=== PATIENT | female | born 1935 | race Caucasian/White ===

== ENCOUNTER 2018-03-21 16:59 | Inpatient (IN) | payer MEDICARE, SELFPAY ==
[2018-03-17 09:56] VITALS: BMI 42.2
[2018-03-20] VITALS (14 sets, daily range): BP systolic 102–134; BP diastolic 52–91; PULSE 63–75; RESP 10–18; TEMP 36.2–36.8; O2SAT 92–97; BMI 42.2
--- NOTE | 2018-03-20 | DI.RAD.S_ITS ---
PROCEDURE: XR LUMBAR SPINE 2-3V INDICATIONS: MICRO DISC ECOMY TECHNIQUE: 3 intraoperative fluoroscopic views of the lumbar spine were acquired. COMPARISON: None. FINDINGS: Bones: Intraoperative fluoroscopic images of lumbar spine shows surgical instrument placed posteriorly at what appears to be L2-3 and L3-4 levels. Soft tissues: Overlying bowel gas pattern is normal. No suspicious soft tissue calcifications. IMPRESSION: Fluoroscopy guidance was provided intraoperatively for lumbar spine microdiscectomy. Dictated by: Vicente Pennington M.D. on 03/20/2018 at 10:56 Approved by: Vicente Pennington M.D. on 03/20/2018 at 10:59
[2018-03-20] MEDS: LACTATED RINGERS 1,000 ML 42 ML IV (08:39)
--- NOTE | 2018-03-20 09:10 | PM.PREOP ---
Pre-operative Note Interval Note Pre-op Check: Yes History & Physical Reviewed by Physician, Yes Exam Performed and Yes History & Physical exam performed today by Physician Changes: No
[2018-03-20] MEDS: CEFAZOLIN 2 GM/100 ML FROZ.PIGGY IV ×2 (09:35→16:35)
--- NOTE | 2018-03-20 10:01 | SUR.OPER ---
Prone on spine table, head in foam head support, padded chest and pelvic supports, gel pad at knees, lower legs supported by pillows; nipples, genitalia and toes free of pressure, arms secured on foam padded arm boards at <90 degrees abduction. Tape over blanket at thigh secured to table.
[2018-03-20] MEDS: BUPIVACAINE 0.25% W/ EPI VIAL 50 ML INJ (10:13)
[2018-03-20] MEDS: methylPREDNISolone acet DEPO 40 MG/ML VIAL INJ (10:14)
--- NOTE | 2018-03-20 11:05 | P.OP_ITS ---
Operative Date/Time/Diagnoses Date of procedure: 03/20/18 Time of procedure: 10:01 Pre-op diagnosis: 1. L2-3, L3-4 spinal stenosis 2. Neurogenic claudication Post-op diagnosis: same Procedure & Clinicians Procedure: 1. L2-3 laminectomy 2. L3-4 laminectomy 3. Utilization of microsurgical technique and operating microscope Same procedure as scheduled: Yes Indications: Patient has been having chronic back pain and worsening lumbar radiculopathy. Patient failed multiple conservative management with worsening pain weakness and numbness in her lower extremity. Patient has been having difficulty performing activity of daily living. After discussing risks benefits of treatment options, patient elected proceed with surgery. Surgeon: Margaret Lowe Geoscience Technician: Linda Spangler Click Yes if Unassisted: No Anesthesia Type: General Operative Notes Closure Type: primary Specimen(s): none sent Estimated Blood Loss (mL): 10 Blood products transfused: none Procedure in detail: Patient was seen in the preoperative area. Risks and benefits of the surgery was discussed with the patient. Informed consent was obtained from the patient and placed in the chart. Surgical site was marked. Patient was taken to the operative room. General anesthesia was administered. Prophylactic antibiotic was given to the patient less than 30 min before the incision was made. Patient was placed into a prone position on the Malik table. Patient's back was then prepped and draped in the sterile fashion. Time- out was performed at this time. Using AP and lateral C-arm imaging the interval between L2-3 L3-4 was identified and marked on patient's back. A 1 inch incision 1 in from midline was made on the left side. The fascia was incised in line with skin incision. Globus MARS retractors was placed inside the incision and docked onto the L2 and L3 lamina. Using microsurgical technique and operating microscope, L2 and L3 laminectomy was performed using a Kerrison rongeur to decompress the L2-3 and L3-4 levels. Total two level laminectomies were performed. Ligamentum flavum was resected at the site of the laminectomy. Either side of the dura was exposed. Bilateral partial facetcomies was performed to further decompress the lateral recess. After the laminectomy was completed, the area medial lateral superior and inferior to the area of the laminectomy was inspected and explored using a micro curette. No other impinging structure was identified. The wound was then irrigated with sterile normal saline. 40 mg Depo-Medrol was placed into the epidural space. The deep fascia was closed with 1-0 Vicryl. The subcutaneous tissue was closed with 2-0 Vicryl. The skin was closed with 4- 0 Monocryl. Patient tolerated the procedure well. There were no complications. Patient was transferred recovery room in stable condition. Complications: none Condition: stable Disposition: same day surgery Plan for aftercare: D/c home
[2018-03-20] MEDS: OXYCODONE/ACETAMINOPHEN 5/325 TABLET 1 TAB PO (11:49)
--- NOTE | 2018-03-20 12:21 | SUR.PHASEII ---
Addendum entered by Akosua Hernandez R.N. 03/20/18 12:24: Original Note: pt dressed and ready to go, sitting on stretcher and stated my feet feel numb, they feel different than before. attempts to bear weight unsuccessful. pt placed back on stretcher and dr kaufman notified, pt to be reevaluated in
--- NOTE | 2018-03-20 12:25 | SUR.PHASEI ---
stable pacu to opd.
--- NOTE | 2018-03-20 13:56 | SUR.PHASEII ---
1300 Pt sitting up in bed, awake. Reported feet still numb, moving ble independently. Attempted to stand slowly, sba. Pt did not put full weight on extremities and sat back down, complaining of weakness. Pt repositioned in stretcher, call light within reach. Pt c/o sore throat, ice chips provided. 1400 Pt declined to stand at this time, reported feet were still numb. Pt reported sore throat has improved.
--- NOTE | 2018-03-20 15:20 | SUR.PHASEII ---
iv placed in rt anterior hand. #24 angio flushed easily with 5ml NS, secured with tegaderm and tape pt. tolerated well.
--- NOTE | 2018-03-20 16:05 | SUR.PHASEII ---
Dr Lowe notified pt unable to stand independently and also her back guaze drsg saturated with blood but tegaderm intact. MD to put in admit orders and vvo to leave drsg intact. Report called to STEFANIE Valdovinos. IV saline locked placed on RT hand but Franchesca Prieto
[2018-03-20] MEDS: SODIUM CHLORIDE 0.9% 1,000 ML 100 ML IV (16:35)
--- NOTE | 2018-03-20 18:56 | PC.NURSE ---
PATIENT ASSISTED TO BSC WITH WALKER,LEGS VERY WEAK, UNSURE OF HER ABILITY TO TRANSFER.
[2018-03-20] MEDS: DOCUSATE 100 MG CAPSULE PO (22:05)
[2018-03-20] MEDS: SENNOSIDES 8.6 MG TABLET 17.2 MG PO (22:05)
[2018-03-20] MEDS: GABAPENTIN 300 MG CAPSULE PO (22:05)
[2018-03-21] MEDS: OXYCODONE IR 5 MG TABLET PO ×2 (01:27→13:58)
[2018-03-21] MEDS: CEFAZOLIN 2 GM/100 ML FROZ.PIGGY IV (01:27)
[2018-03-21] MEDS: SODIUM CHLORIDE 0.9% 1,000 ML 100 ML IV (01:28)
[2018-03-21 05:32] LABS: Hematocrit 35.7 % (36-46); Hemoglobin 12.3 g/dL (12.0-16.0)
[2018-03-21 06:00] VITALS: BP 120/65; PULSE 66; RESP 16; TEMP 36.6; O2SAT 95
--- NOTE | 2018-03-21 07:36 | PM.PNPO.1 ---
Subjective Date Patient Seen: 03/21/18 Time Patient Seen: 07:36 Interval history: Patient is PD 1. Status post L2-L3, L3-[address] Lowe. States that she feels weak. She is taking 1 pain pill but she says it is taking a long time to working visually not covering her pain right now. Numbness down both her legs has gotten better after surgery. Plan is for her to be eventually discharged home when stable. Exam Vital Signs (past 8 hours): - 03/21/18 06:00 Temperature 97.8 F Pulse Rate 66 Respiratory Rate 16 Blood Pressure 120/65 Pulse Oximetry 95 Oxygen Delivery Method Room Air Narrative Exam Narrative: Patient in bed. Alert and orient x3. Back dressing soaked with blood. No active bleeding. Bilateral calves soft and nontender. 5/5 BLE. Numbness in bilateral toes. Objective Labs Result Diagrams: 03/21/18 05:07 Labs: Laboratory Results - last 24 hr 03/21/18 05:07 Hgb 12.3 Hct 35.7 L Assessment & Plan Post-op Postoperative Procedures Operation Date: 03/20/18 09:15 Actual Procedures Side Surgeon p Laminectomy L2-3,L3-4 Margaret Lowe MD Postop day 1. Vac dressing was changed to 4x4s and Cover site dressing. Patient ambulate with physical therapy. Will order oxycodone 10 mg q.3h as needed pain. Possible discharge home in the next day or 2. Quality VTE Deep Vein Thrombosis/Pulmonary Embolism Present on Admission: No
[2018-03-21 07:55] VITALS: BP 123/67; PULSE 59; RESP 12; TEMP 36.8; O2SAT 93
[2018-03-21] MEDS: OXYCODONE IR 10 MG TABLET PO (09:04)
[2018-03-21] MEDS: GABAPENTIN 300 MG CAPSULE PO ×2 (09:05→20:14)
[2018-03-21] MEDS: hydroCHLOROthiazide 12.5 MG CAPSULE PO (09:05)
[2018-03-21] MEDS: LOSARTAN 50 MG TABLET PO (09:05)
[2018-03-21] MEDS: DOCUSATE 100 MG CAPSULE PO ×2 (09:07→20:14)
--- NOTE | 2018-03-21 10:29 | PC.NURSE ---
Addendum entered by Marichuy Wilson R.N. 03/21/18 14:13: MS/PAIN - after up with phys therapy, using gait belt, fww, ambul to door and then sat in chair, states pain now 5 on scale 0/10, discussed pain medications and given oxycodone 5mg with crackers. Original Note: Addendum entered by Marichuy Wilson R.N. 03/21/18 12:59: PAIN - pt seated chair, little tearful as her family was in to enc pt go to snf following discharge, states pain managed with earlier oxycodone and declines addl meds at this time, will ask if needed, enc pt to continue with phys therapy for strengthening and then will be able to make decisions tomorrow. Original Note: AM NOTE - pt states pain r hand at iv site, infiltrated and ivf stopped and saline lock removed, Charlee in this am and dsg back saturated and telfa loose, removed, steristrips w/old serosang, no active drainage, per instructions from Charlee, placed telfa over, 4x4, w/coversite over, pain 5 on scale 0/10, does have hx numbness le and feet prior to surg, continues with some numbness toes, later up with phys therapy and has lle weakness, stood and tsf to chair, given oxycodone 10mg po after breakfast for mobilization.
[2018-03-21 11:45] VITALS: BP 119/57; PULSE 56; RESP 12; TEMP 36.4; O2SAT 94
--- NOTE | 2018-03-21 12:31 | PT.IIE ---
Current Diagnoses Other spondylosis with radiculopathy, lumbar region (03/20/18) Spinal stenosis, lumbar region with neurogenic claudication (03/20/18) Surgery Performed Operation Date: 03/20/18 09:15 Actual Procedures p Laminectomy L2-3,L3-4 - Margaret Lowe MD Medical History (Last Updated 03/17/18 @ 10:08 by Mónica Munoz RN) Essential hypertension with goal blood pressure less than 140/90 (Acute) Low back pain (Acute) SHIRLENE (obstructive sleep apnea) (Acute) Other spondylosis with radiculopathy, lumbar region (Acute) Sciatica (Acute) Spinal stenosis, lumbar region with neurogenic claudication (Acute) Physical Therapy Inpatient Evaluation/Re-Eval Medical Review Prior Functional Status Medical History Reviewed Yes Diet/Fluid Consistency Regular Communication no known deficits Mobility and Gait normally mod ind with SPC for community mobility, ind without device at home. Activities of Daily Living and IADL's ind, normally wears slip on shoes at home so she doesn't have to bend over Prior Functional Level (Other details) drives Social History Household Members none Living Arrangements House Number of Floors (Floors) One Floor Number of Stairs To Enter/Railing? ramped entry Home Environment High Toilet Walk in Shower Built-In Shower Seat Ramp Home Equipment Front Wheel Walker Four Wheel Walker Straight Cane Raised Toilet Seat Without Armrests Hand Held Shower Grab Bars In Shower Additional Social History Comment pt reports that she will have initial 17/01 assist, son lives next door Physical Therapy Current Condition Current Condition Evaluation Date 03/21/18 Treatment Diagnosis L2-L3, L3-4 laminectomies, impaired mobility, focal LLE weakness Onset Date 03/20/18 Precautions Lumbar Precautions Log Roll No Twisting Limit Bending Lifting Restriction of 10 lbs Gait Belt above Incisional Area Subjective Physical Therapy Visit Type Type Initial Evaluation Visit Start Time 08:30 Visit Stop Time 10:00 Total Visit Minutes 50 Notes split session; [id number], 0930 -1000. Physical Therapy Visit Comments Patient Comments Pt reports being motivated to get moving, really shocked she 's having so much weakness. Patient Goals go home, get LLE stronger/ working Therapy Pain Assessment Pain When Pain Assessed At Rest Pain Present Pain Present Denied Pain PT-Bed Mobility Assessment Rolling Type of Rolling Log Rolling Roll to Right Level of Assist Standby Assistance Supine to Sit Supine to Sit Standby Assistance Scooting Scooting to Edge of Bed Standby Assistance PT-Transfer Assessment Sit to and From Stand Sit to and from Stand Minimal Assistance 1 Person Assistance Use of Upper Extremities Equipment Transfer Assistive Device Gait Belt Front Wheeled Walker Transfers Transfer Destination Chair Transfer Technique Stand Step Pivot Transfer Ability Level of Assist Contact Guard Assistance 1 Person Assistance Use of Upper Extremities Comments Mobility Comments Pt performs bed mobility with ideal technique. Pt needs min A to stand up from elevated bed using be rail and FWW, gait belt worn high on chest. L knee quite unstable even with gentle lateral weight shifting. Gait Assessment Comments Gait Comments not appropriate to assess at this time PT-Balance Assessment Sitting Balance and Reactions Static Sitting Balance Ability Normal Dynamic Sitting Balance Ability Normal Standing Balance and Reactions Static Standing Balance Ability Fair Dynamic Standing Balance Ability Poor Device Used FWW Orientation Orientation/Cognition Level of Alertness Alert Orientation Name Age Birthday Month Date Year Day of Week Place Situation Language Function Ability No Deficits Noted Safety Awareness Understands Safety Issues Memory Description No Deficits Noted Gross Range of Motion Upper Extremity ROM Assessment Within Functional Limits Lower Extremity ROM Assessment Within Functional Limits Strength Upper Extremity Strength Assessment Within Functional Limits Lower Extremity Strength Assessment Bilaterally Impaired Hip R 4/5, L 2+/5 Knee R 4/5, L 3/5 Ankle R 4/5, L 3/5 Physical Therapy Treatment Education Education Provided Precautions Weight Bearing Status Post-Op Packet Safety Other Treatments Other Treatment Performed Pt instructed in seated heel raises, LAQ, and marching. PT Summary Assessment and Plan Potential Rehabilitation Potential Good Status of Condition at Evaluation Evolving Summary Impairments Strength Balance Transfers Gait Progress Towards Goals Progressing Toward Goals Assessment Summary Pt is POD#1 for L2-L4 lami. The initial plan had been for pt to discharge directly home yesterday, however, pt's LLE was too weak to support her. Today pt's LLE is still significantly weaker than the RLE (though both demonstrate weakness). In standing pt's LLE is quite unstable, and it' s not safe for pt to attempt ambulation yet. This is expected to improve as local swelling continues to decrease , hopefully to the point that the patient is able to ambulate and return home w/ assist. However, if this doesn 't occur in the next 1-2 then another plan will need to be made. Pt expresses understanding and is in agreement with this plan. Goals Bed Mobility Goal Independent Transfer Goal Independent Front Wheeled Walker Gait Goal Independent Front Wheel Walker Gait Distance 50 Days to Meet Goals 3 Frequency of Treatment Frequency Of Treatment Twice a Day Treatment Plan Physical Therapy Treatment Plan Bed Mobility Training Transfer Training Gait Training Therapeutic Exercise Balance Retraining Post Op Education Discharge Planning Hot or Cold Pack Neuromuscular Re-ed Coordination Retraining Manual Therapy Other Recommendations and Next Treatment LLE strength, transfers, Focus attempt gait once LLE can support her weight better in standing Recommendations To Nursing Amount of Assist Needed 1 Person Assist Discharge Recommendations PT Discharge Recommendations Home with 17/01 Assist Home Health Other Discharge Recommendations pt might need SNF if LLE strength doesn't improve
--- NOTE | 2018-03-21 12:48 | CM.DANOTE ---
Discharge Planning/Care Management CM Discharge Assessment Start: 03/21/18 12:43 Freq: Status: Active Protocol: Document 03/21/18 12:43 (Rec: 03/21/18 12:48 [id number]) Discharge Planning Assessment Assigned Rubber Goods Cutter Finisher GISELA Joseph Advance Directives? No History Provided By Patient Family Member Medical Record Has Patient been admitted in last 30 No days? Prior Living Arrangements House Household Members none Type of transporation used prior to Drives own vehicle admit Independent with ADL's Yes Is patient alert and oriented? Yes Caregiver for Another No Community Services used prior to Physical Therapy admission: Comment OP PT DME Already Rented / Owned Cane Comment Used cane as needed. Patient/Family Preference Home with Home Health Comment Patient is wishing to discharge home with HH but will discuss SNF as last resort. Barriers to Discharge No Discharge Plan Home with Home Health Community Services Physical Therapy Occupational Therapy Transportation Arrangement Daughter able to assist with transportation. Additional Comment Need HH referral but patient is reviewing Medicare choice list. If patient plan is home with home health No: PCP is SHAHZAD Burns : Has signed face to face form been completed? Comment currently [facility] Medicare Choice List Provided Yes SNF/HH Preference Patient is still reviewing agencies with family. Patient [place] [facility]. Whiteboard Updated in Patient Room with Yes name and ext. # of Rubber Goods Cutter Finisher Review Status In Process Please Provide Date Initial DC 03/21/18 Assessment Was Performed Next Review Type Continued Stay Review Met with patient, adult daughter, and adult granddaughter who is employed at . Patient is independent at baseline and motivated to return home. PT eval was completed and it was recommended Home w/ HH vs Home w/ 17/01. Depending on how much patient progressed SNF may be needed. Patient is pending OT eval. During conversation daughter reported concerns about patient returning home. Patient's discharge goals are to return home with HH but did remain agreeable to a discussion on SNF if absolutely necessary. provided Medicare Choice list and requested family to provide primary and secondary options. Plan: pending patient progress. Should patient progress safely home w/ HH should be a safe discharge. F2F and HH agency selection are still needed. If patient does not progress with PT, CM team to follow up to discuss safety concerns and possible need for SNF. Patient is currently in Outpatient which would be a barrier should patient need SNF.
--- NOTE | 2018-03-21 15:25 | PT.IPTN ---
Current Diagnoses Other spondylosis with radiculopathy, lumbar region (03/20/18) Spinal stenosis, lumbar region with neurogenic claudication (03/20/18) Surgery Performed Operation Date: 03/20/18 09:15 Actual Procedures p Laminectomy L2-3,L3-4 - Margaret Lowe MD Physical Therapy Treatment Note Physical Therapy Current Condition Current Condition Evaluation Date 03/21/18 Treatment Diagnosis L2-L3, L3-4 laminectomies, impaired mobility, focal LLE weakness Onset Date 03/20/18 Precautions Lumbar Precautions Log Roll No Twisting Limit Bending Lifting Restriction of 10 lbs Gait Belt above Incisional Area Subjective Physical Therapy Visit Type Type Treatment Note Visit Start Time 13:30 Visit Stop Time 14:23 Total Visit Minutes 53 Physical Therapy Visit Comments Patient Comments Pt reports her daughter wants her to consider going to rehab , this plan makes her anxious as she feels that if she goes to a shelter she won't ever leave. Patient Goals go home, even with help Therapy Pain Assessment Pain When Pain Assessed At Rest Pain Present Pain Present Denied Pain PT-Bed Mobility Assessment Rolling Type of Rolling Log Rolling Level of Assist Standby Assistance Sit to Supine Sit to Supine Moderate Assistance PT-Transfer Assessment Sit to and From Stand Sit to and from Stand Moderate Assistance 1 Person Assistance Use of Upper Extremities Equipment Transfer Assistive Device Gait Belt Front Wheeled Walker Transfers Transfer Destination Bed Chair Bedside Commode Transfer Technique Stand Step Pivot Transfer Ability Level of Assist Contact Guard Assistance 1 Person Assistance Use of Upper Extremities Comments Mobility Comments Pt needing mod A to get back into bed, needing assist for lifting both legs. Pt needing mod A to stand up from recliner (lower surface) and min A from EOB and from fully elevated BSC. Gait Assessment Gait Gait Assistance Required: Minimum Assistance 2 Person Assist Distance (Feet) 10 Able to Maintain Weight Bearing Status Yes During Gait Assistive Devices Assistive Device Gait Belt Front Wheeled Walker Factors Limiting Gait Function Factors Limiting Gait Function Decreased Activity Tolerance Decreased Strength Pain Poor Balance Comments Gait Comments Pt walked 10ft with CGA<>min A , use of FWW, and a very close chair follow with a recliner. One buckle of the left knee but able to maintain balance with min A. Cues provided for breathing and reciprocal activation awareness for the L quads in L single leg stance. Pt unable to walk further than this due to pain and fatigue/weakness. Stair Climbing Assessment Comments Stair Climbing Comments not appropriate to assess PT-Balance Assessment Standing Balance and Reactions Static Standing Balance Ability Fair Dynamic Standing Balance Ability Poor Device Used FWW Orientation Orientation/Cognition Level of Alertness Alert Orientation Name Age Birthday Month Date Year Day of Week Place Situation Language Function Ability No Deficits Noted Safety Awareness Understands Safety Issues Memory Description No Deficits Noted Gross Range of Motion Upper Extremity ROM Assessment Within Functional Limits Lower Extremity ROM Assessment Within Functional Limits Strength Upper Extremity Strength Assessment Within Functional Limits Lower Extremity Strength Assessment Bilaterally Impaired Hip R 4/5, L 2+/5 Knee R 4/5, L 3/5 Ankle R 4/5, L 3/5 Physical Therapy Treatment Education Education Provided Precautions Weight Bearing Status Post-Op Packet Safety Other Treatments Other Treatment Performed Pt instructed in seated heel raises, LAQ, and marching. PT Summary Assessment and Plan Potential Rehabilitation Potential Good Status of Condition at Evaluation Evolving Summary Impairments Strength Balance Transfers Gait Progress Towards Goals Progressing Toward Goals Slow Progress - Other Assessment Summary Pt is POD#1 for L2-L4 lami. No improvement in LLE motor control since the morning session. Pt was able to attempt walking with 2nd person doing a chair follow, however, pt only able to tolerate 10ft. Pt needing more assist for mobility this session, partially due to lower chair height compared to bed. Pt will definitely benefit from ongoing therapies , however, due to the high level of assist that's currently needed it is now recommended that pt transition to rehab prior going home. Pt is going to think about it but expresses understanding as to rationale for this recommendation. Recommendations To Nursing Amount of Assist Needed 1 Person Assist Discharge Recommendations PT Discharge Recommendations SNF Rehab Other Discharge Recommendations home w. assist if able to progress quickly enough
--- NOTE | 2018-03-21 15:28 | OT.IP.EVAL ---
Current Diagnoses Other spondylosis with radiculopathy, lumbar region (03/20/18) Spinal stenosis, lumbar region with neurogenic claudication (03/20/18) Surgery Performed Operation Date: 03/20/18 09:15 Actual Procedures p Laminectomy L2-3,L3-4 - Margaret Lowe MD Past Medical History (Last Updated 03/17/18 @ 10:08 by Mónica Munoz RN) Essential hypertension with goal blood pressure less than 140/90 (Acute) Low back pain (Acute) SHIRLENE (obstructive sleep apnea) (Acute) Other spondylosis with radiculopathy, lumbar region (Acute) Sciatica (Acute) Spinal stenosis, lumbar region with neurogenic claudication (Acute) Occupational Therapy Inpatient Evaluation/Re-Eval M1 PT/OT-IP Prior Functional Status Start: 03/21/18 08:33 Freq: NEEDED Status: Active Protocol: Document 03/21/18 15:30 PJM (Rec: 03/21/18 15:28 PJ [id number]) Medical Review Prior Functional Status Medical History Reviewed Yes Diet/Fluid Consistency Regular Communication WNL Mobility and Gait normally mod ind with SPC for community mobility, indep without device at home. Activities of Daily Living and IADL's pt independent with all self care, IADLs, drives, works in her garden Social History Household Members none Living Arrangements House Number of Floors (Floors) One Floor Number of Stairs To Enter/Railing? ramp to enter Home Environment Standard Height Toilet Walk in Shower Ramp Home Equipment Front Wheel Walker Four Wheel Walker Straight Cane Raised Toilet Seat Without Armrests Shower Seat without Backrest Long Handled Sponge Long Handled Shoe Horn Frame Runner Sock Aid Employment Status Retired Additional Social History Comment pt's son lives next door but is dasabled and unable to assist; dtr lives 20 min away, does not work and can assist with grocery shopping/ seed cleaning manager PRN when pt returns home M2 OT-IP Current Condition Start: 03/21/18 15:30 Freq: Status: Active Protocol: Document 03/21/18 15:30 PJM (Rec: 03/21/18 15:28 PJM [id number]) Occupational Therapy Current Condition Current Condition Evaluation Date 03/21/18 Treatment Diagnosis decreased self care,functional mobility s/p L2-3, L3-4 lami Diagnosis Onset Date 03/20/18 Post Operative Precautions Lumbar Precautions Log Roll No Twisting Limit Bending Lifting Restriction of 10 lbs Gait Belt above Incisional Area M3 OT- IP Subjective and Pain Start: 03/21/18 15:30 Freq: Status: Active Protocol: Document 03/21/18 15:30 PJM (Rec: 03/21/18 15:28 [facility] [id number]) OT- Subjective Occupational Therapy Visit Type Type Initial Evaluation Visit Start Time 15:05 Visit Stop Time 15:28 Total Visit Minutes 23 Occupational Therapy Visit Comments Patient Comments I will go to rehab if my leg doesn't get stronger. Patient/Caregiver Goals to return to indep living in her own home OT Pain Assessment Pain When Pain Assessed After Treatment Pain Present Pain Present Pain Reported Location back Intensity 5 Scale Used Numeric (1 - 10) Description Aching Acute Pain Behaviors Guarding Management Techniques Distraction Timing of Activity with Medications M4 OT- IP ADL's Start: 03/21/18 15:30 Freq: Status: Active Protocol: Document 03/21/18 15:30 PJM (Rec: 03/21/18 15:28 [facility] [id number]) OT [id number] General Evaluation Self-Feeding Ability Independent Comments OT Self-Feeding Comments in bed or chair OT ADL-Grooming General Evaluation Grooming Ability Standby Assistance Areas Needing Assistance Retrieving/Set-up of Grooming Items Combing/Brushing Hair Face Washing Comments OT Grooming Comments after set up in bed or chair OT ADL-Oral Care General Eval Oral Care Ability Standby Assistance Areas of Assistance Retrieving/Set-Up of Items Comments Oral Care Comments after set up in bed or chair OT ADL-Dressing General Eval Upper Body Dressing Ability Standby Assistance Lower Body Dressing Ability Maximum Assistance Assistive Devices Dressing Assistive Devices Long Handled Shoe Horn Frame Runner Sock Aid Comments OT Dressing Comments Began education re: equipment options to increase indep in lower body dressing; provided refrigeration service technician, sock aid; pt has long shoe horn and requested pt have slip on shoes brought in OT ADL-Toileting General Evaluation Toileting Ability Maximum Assistance Devices Toileting Assistive Devices Raised Toilet Seat OT ADL-Bathing Comments OT Bathing Comments to be assessed as activity tolerance improves M5 OT- IP IADL's Start: 03/21/18 15:30 Freq: Status: Active Protocol: Document 03/21/18 15:30 PJM (Rec: 03/21/18 15:28 [facility] [id number]) OT-Instrumental Activities of Daily Living Deficits IADL Deficits Identified Deficits Home Safety Awareness Awareness of Need for Assistance at Home Good Awareness Ability to Problem Solve Emergency Able to Problem Solve Situations Medication Management Medication Management No Deficits Identified Money Management Money Management No Deficits Identified Meal Preparation Meal Preparation Caregiver Provides Assist Meal Preparation Comments pt will need assist with grocery shopping and meal prep at home; daughter to assist until pt able Chain Maker Loom Control Chain Maker Loom Control Caregiver Provides Assist Chain Maker Loom Control Comments daughter to assist until pt able Driving Driving Caregiver Provides Assist Driving Comments daughter to assist until pt able M6 OT- IP Functional Cognition Start: 03/21/18 15:30 Freq: Status: Active Protocol: Document 03/21/18 15:30 PJM (Rec: 03/21/18 15:28 [facility] [id number]) Cognitive Factors Limiting Selfcare Function Cognitive Ability Level of Alertness Alert Patient Orientation Name Age Birthday Month Date Year Day of Week Place Situation Attention Span Ability Capable of Focused Attention Capable of Sustained Attention Ability to Follow Commands Able to Follow One Step Commands Memory Description No Deficits Noted Safety Awareness Underestimates Need for Assistance Problem Solving Ability No deficits Noted Cognitive Comments Cognitive Assessment Comments appears WFL OT- Vision and Hearing OT- Hearing Assessment OT- Hearing Assessment WFL OT- Vision Assessment Visual Acuity WFL Vision Assessment Comments Pt wears glasses for driving; denies any recent vision changes M7 OT- IP Mobility and Balance Start: 03/21/18 15:30 Freq: Status: Active Protocol: Document 03/21/18 15:30 PJM (Rec: 03/21/18 15:28 [facility] [id number]) OT-Transfer Assessment Comments Mobility Comments see P.T. notes OT- Gait Assessment Comments Gait Ability Comments Per chart notes, pt making slow progress with P.T. due to LLE weakness and buckling. Pt has only walked 10 feet with chair following close behind. OT- Balance Assessment Comments Other Balance Tests/Deviations/Treatment see P.T. notes : M8 OT- IP Objective Assessments Start: 03/21/18 15:30 Freq: Status: Active Protocol: Document 03/21/18 15:30 PJM (Rec: 03/21/18 15:28 [facility] [id number]) OT Gross Range of Motion Upper Extremity Range of Motion Assessment Within Functional Limits OT Strength Upper Extremity Strength Assessment Within Functional Limits OT- Coordination Assessment Comments Coordination Comments BUE WFL OT-Muscle Tone Assessment Muscle Tone WNL Yes OT Sensation Assessment Comments Summary Comments Pt denies deficits. M9 OT- IP Assessment and Plan Start: 03/21/18 15:30 Freq: Status: Active Protocol: Document 03/21/18 15:30 PJM (Rec: 03/21/18 15:28 PJM [id number]) OT Summary Assessment and Plan Potential Rehabilitation Potential Good Analytic Complexity at Evaluation Low Summary OT Impairments Pain Strength Balance Functional Mobility Grooming Dressing Toileting Bathing Toilet Transfers Shower Transfers Assessment Summary Low complexity OT assessment completed with emphasis on self care skills within lumbar spine precautions. Pt has significant LLE weakness/ buckling during ambulation with P.T. and has significant performance deficits in all functional mobility/transfers. She also is far below her functional baseline in self care skills and has decreased independence in standing grooming, lower body dressing, bathing, toileting and all IADL skills. Pt normally lives alone. Recommend SNF at d/c for further subacute rehab services unles3 pt makes rapid progress with LLE strength, transfers and ambulation. Goals Grooming Goal Contact Guard Assistance Dressing Goal Standby Assistance Toileting Goal Standby Assistance Bathing Goal Minimal Assistance Toilet Transfer Goal Contact Guard Assistance Shower Transfer Goal Minimal Assistance Patient/Caregiver Education Goal Demonstrate Post-Op Precautions Demonstrate Energy Conservation and Pacing Caregiver Independent Assisting Patient OT-Other Goals grooming to be done standing at sink with good safety awareness and no loss of balance Days to Meet Goals 5 Frequency of Treatment Frequency Of Treatment Once a Day Treatment Plan OT Treatment Plan ADL Training Discharge Recommendations OT Discharge Recommendations SNF Rehab Home Equipment Needs provided refrigeration service technician, sock aid and long bath sponge
[2018-03-21 15:55] VITALS: BP 118/29; PULSE 59; RESP 20; TEMP 35.8; O2SAT 99
[2018-03-21] MEDS: SENNOSIDES 8.6 MG TABLET 17.2 MG PO (20:14)
[2018-03-22 03:10] VITALS: BP 123/60; PULSE 64; RESP 16; TEMP 36.3; O2SAT 96
[2018-03-22 08:00] VITALS: BP 130/66; PULSE 56; RESP 16; TEMP 36.3; O2SAT 97
[2018-03-22] MEDS: LOSARTAN 50 MG TABLET PO (09:34)
[2018-03-22] MEDS: GABAPENTIN 300 MG CAPSULE PO ×2 (09:34→21:24)
[2018-03-22] MEDS: hydroCHLOROthiazide 12.5 MG CAPSULE PO (09:34)
[2018-03-22] MEDS: DOCUSATE 100 MG CAPSULE PO ×2 (09:34→21:24)
--- NOTE | 2018-03-22 11:40 | PT.IPTN ---
Current Diagnoses Other spondylosis with radiculopathy, lumbar region (03/21/18) Spinal stenosis, lumbar region with neurogenic claudication (03/21/18) Surgery Performed Operation Date: 03/20/18 09:15 Actual Procedures p Laminectomy L2-3,L3-4 - Margaret Lowe MD Physical Therapy Treatment Note M2 PT-IP Current Condition Start: 03/21/18 08:33 Freq: NEEDED Status: Active Protocol: Document 03/21/18 11:57 RS (Rec: 03/21/18 12:31 RS [id number]) Physical Therapy Current Condition Current Condition Evaluation Date 03/21/18 Treatment Diagnosis L2-L3, L3-4 laminectomies, impaired mobility, focal LLE weakness Onset Date 03/20/18 Precautions Lumbar Precautions Log Roll No Twisting Limit Bending Lifting Restriction of 10 lbs Gait Belt above Incisional Area M3 PT-IP Subjective Start: 03/21/18 08:33 Freq: NEEDED Status: Active Protocol: Document 03/22/18 11:40 GGD (Rec: 03/22/18 13:07 GGD [id number]) Subjective Physical Therapy Visit Type Type Treatment Note Visit Start Time 11:20 Visit Stop Time 11:40 Total Visit Minutes 30 Number of DYNAMITE RECLAIMER Visits 1 Physical Therapy Visit Comments Patient Comments Pt up to bathroom with NSG. Therapy Pain Assessment Pain When Pain Assessed At Rest Pain Present Pain Present Pain Reported M4 PT-IP Mobility and Gait Start: 03/21/18 08:33 Freq: NEEDED Status: Active Protocol: Document 03/22/18 11:40 GGD (Rec: 03/22/18 13:07 GGD [id number]) PT-Bed Mobility Assessment Rolling Type of Rolling Log Rolling Level of Assist Standby Assistance PT-Transfer Assessment Sit to and From Stand Sit to and from Stand Minimal Assistance 1 Person Assistance Use of Upper Extremities Equipment Transfer Assistive Device Gait Belt Front Wheeled Walker Transfers Transfer Destination Chair Gait Assessment Gait Gait Assistance Required: Minimum Assistance 1 Person Assist Distance (Feet) 50 Able to Maintain Weight Bearing Status Yes During Gait Assistive Devices Assistive Device Gait Belt Front Wheeled Walker Factors Limiting Gait Function Factors Limiting Gait Function Decreased Activity Tolerance Decreased Strength Pain Poor Balance Comments Gait Comments Pt had left knee buckle with gait. M5 PT-IP Objective Assessments Start: 03/21/18 08:33 Freq: NEEDED Status: Active Protocol: Document 03/21/18 11:57 RS (Rec: 03/21/18 12:31 RS [id number]) Orientation Orientation/Cognition Level of Alertness Alert Orientation Name Age Birthday Month Date Year Day of Week Place Situation Language Function Ability No Deficits Noted Safety Awareness Understands Safety Issues Memory Description No Deficits Noted Gross Range of Motion Upper Extremity ROM Assessment Within Functional Limits Lower Extremity ROM Assessment Within Functional Limits Strength Upper Extremity Strength Assessment Within Functional Limits Lower Extremity Strength Assessment Bilaterally Impaired Hip R 4/5, L 2+/5 Knee R 4/5, L 3/5 Ankle R 4/5, L 3/5 M6 PT-IP Treatment Start: 03/21/18 08:33 Freq: NEEDED Status: Active Protocol: Document 03/22/18 11:40 GGD (Rec: 03/22/18 13:07 GGD [id number]) Physical Therapy Treatment Education Education Provided Precautions Safety M7 PT-IP Assessment and Plan Start: 03/21/18 08:33 Freq: NEEDED Status: Active Protocol: Document 03/22/18 11:40 GGD (Rec: 03/22/18 13:07 GGD [id number]) PT Summary Assessment and Plan Summary Assessment Summary Pt is having decrease in left LE motor control and knee buckling with gait. She was able to progress her gait, but did need min a for balance and knee buckling. She need assist for sit to stand from toilet. Frequency of Treatment Frequency Of Treatment Twice a Day Treatment Plan Other Recommendations and Next Treatment LLE strength, transfers, Focus Recommendations To Nursing Amount of Assist Needed 1 Person Assist Discharge Recommendations PT Discharge Recommendations SNF Rehab Other Discharge Recommendations home w. assist and PT/OT, if able to progress quickly enough
[2018-03-22 12:00] VITALS: BP 110/60; PULSE 68; RESP 18; TEMP 36.7; O2SAT 96
--- NOTE | 2018-03-22 12:20 | PM.PNPO.1 ---
Subjective Date Patient Seen: 03/22/18 Time Patient Seen: 12:20 Interval history: Patient post op day 2 status post L2-L3, L3-[address] Lowe. Patient is sitting up in chair with OT. She reports that she is in no pain at this time. She reports the numbness down her legs bilaterally has resolved however she still feels slight numbness under the padding of her toes bilaterally. OT reports that during her assessment today she is still having problems ambulating; left leg continues to buckle. OT suggest patient plan for SNF. Patient reports that she would like to work more time with OT. Patient reports that she lives alone and would like to ambulate more before being discharged. Patient denies any SOB, chest pain, nausea, vomiting, fever or chills. Exam Vital Signs (past 8 hours): - 03/22/18 08:00 Temperature 97.3 F L Pulse Rate 56 L Respiratory Rate 16 Blood Pressure 130/66 Pulse Oximetry 97 Oxygen Delivery Method Room Air Narrative Exam Narrative: Patient is AOx3. Radial and dorsalis pedis pulses 2+ and symmetric. Muscle strength 5/5 in dorsiflexion and plantarflexion bilaterally. Mild numbness in toes bilaterally. Back dressing is CDI. Calfs are soft, non tender and compressible bilaterally. Objective Labs Result Diagrams: 03/21/18 05:07 Assessment & Plan Post-op Postoperative Procedures Operation Date: 03/20/18 09:15 Actual Procedures Side Surgeon p Laminectomy L2-3,L3-4 Margaret Lowe MD Postoperative day: 2 Postoperative plan: routine post-op care Postoperative plan narrative: Continue to ambulate with physical therapy. Likely to be discharged to SNF in the next few days. Case management has been consulted. Time Spent With Patient less than 15 minutes Quality VTE Deep Vein Thrombosis/Pulmonary Embolism Present on Admission: No
--- NOTE | 2018-03-22 12:40 | OT.IP.TRT ---
Current Diagnoses Other spondylosis with radiculopathy, lumbar region (03/22/18) Spinal stenosis, lumbar region with neurogenic claudication (03/22/18) Surgery Performed Operation Date: 03/20/18 09:15 Actual Procedures p Laminectomy L2-3,L3-4 - Margaret Lowe MD Occupational Therapy Treatment Note M2 OT-IP Current Condition Start: 03/21/18 15:30 Freq: Status: Active Protocol: Document 03/21/18 15:30 PJM (Rec: 03/21/18 15:49 PJM [id number]) Occupational Therapy Current Condition Current Condition Evaluation Date 03/21/18 Treatment Diagnosis decreased self care,functional mobility s/p L2-3, L3-4 lami Diagnosis Onset Date 03/20/18 Post Operative Precautions Lumbar Precautions Log Roll No Twisting Limit Bending Lifting Restriction of 10 lbs Gait Belt above Incisional Area M3 OT- IP Subjective and Pain Start: 03/21/18 15:30 Freq: Status: Active Protocol: Document 03/22/18 16:21 PJM (Rec: 03/22/18 16:34 PJM [id number]) OT- Subjective Occupational Therapy Visit Type Type Treatment Note Visit Start Time 12:02 Visit Stop Time 12:40 Total Visit Minutes 38 Notes Pt's granddaughter here for education. She is an RN at [employer] on acute care. Occupational Therapy Visit Comments Patient Comments I cannot get out of low chairs! Patient/Caregiver Goals to return to independent living alone in her own home OT Pain Assessment Pain When Pain Assessed After Treatment Pain Present Pain Present Pain Reported Location back Intensity 2 Scale Used Numeric (1 - 10) Description Aching Acute M4 OT- IP ADL's Start: 03/21/18 15:30 Freq: Status: Active Protocol: Document 03/22/18 16:21 PJM (Rec: 03/22/18 16:34 PJ [id number]) OT ADL-Grooming General Evaluation Grooming Ability Standby Assistance Areas Needing Assistance Retrieving/Set-up of Grooming Items Comments OT Grooming Comments seated in recliner at sink; attempted standing at sink, but pt unable to arise from low recliner OT ADL-Oral Care General Eval Oral Care Ability Standby Assistance Areas of Assistance Brushing Teeth Comments Oral Care Comments seated at sink OT ADL-Dressing General Eval Lower Body Dressing Ability Minimal Assistance Areas Needing Assistance Socks Assistive Devices Dressing Assistive Devices Die Try Out Worker Sock Aid Comments OT Dressing Comments practiced donning and doffing socks with new adaptive equipment OT ADL-Toileting Comments OT Toileting Comments Provided bariatric commode for pt use here; provided education to granddaughter re: resources for rental or purchase [facility] OT ADL-Bathing Bathing Type Bathing Type Sponge Bath General Evaluation Bathing Ability Minimal Assistance Areas Needing Assistance Wash/Dry Back Comments OT Bathing Comments Pt completed upper body sponge bath seated at sink. Provided education to granddaughter re : transfer tub seat as safest option for pt at home due to LLE buckling. Demonstrated sit and swivel technique and methods to adapt shower curtain to keep water in tub. Recommend shower hose. Provided info re: equipt resources/prices. M5 OT- IP IADL's Start: 03/21/18 15:30 Freq: Status: Active Protocol: Document 03/21/18 15:30 PJM (Rec: 03/21/18 15:49 [facility] [id number]) OT-Instrumental Activities of Daily Living Deficits IADL Deficits Identified Deficits Home Safety Awareness Awareness of Need for Assistance at Home Good Awareness Ability to Problem Solve Emergency Able to Problem Solve Situations Medication Management Medication Management No Deficits Identified Money Management Money Management No Deficits Identified Meal Preparation Meal Preparation Caregiver Provides Assist Meal Preparation Comments pt will need assist with grocery shopping and meal prep at home; daughter to assist until pt able Night Nurse Night Nurse Caregiver Provides Assist Night Nurse Comments daughter to assist until pt able Driving Driving Caregiver Provides Assist Driving Comments daughter to assist until pt able M6 OT- IP Functional Cognition Start: 03/21/18 15:30 Freq: Status: Active Protocol: Document 03/21/18 15:30 PJM (Rec: 03/21/18 15:49 [facility] [id number]) Cognitive Factors Limiting Selfcare Function Cognitive Ability Level of Alertness Alert Patient Orientation Name Age Birthday Month Date Year Day of Week Place Situation Attention Span Ability Capable of Focused Attention Capable of Sustained Attention Ability to Follow Commands Able to Follow One Step Commands Memory Description No Deficits Noted Safety Awareness Underestimates Need for Assistance Problem Solving Ability No deficits Noted Cognitive Comments Cognitive Assessment Comments appears WFL OT- Vision and Hearing OT- Hearing Assessment OT- Hearing Assessment WFL OT- Vision Assessment Visual Acuity WFL Vision Assessment Comments Pt wears glasses for driving; denies any recent vision changes M7 OT- IP Mobility and Balance Start: 03/21/18 15:30 Freq: Status: Active Protocol: Document 03/22/18 16:21 PJM (Rec: 03/22/18 16:34 PJM [id number]) OT-Transfer Assessment Comments Mobility Comments Pt unable to arise from low recliner this session in front of sink. OT- Gait Assessment Comments Gait Ability Comments See P.T. report OT- Balance Assessment Sitting Balance and Reactions Static Sitting Balance Ability Good Dynamic Sitting Balance Ability Good M8 OT- IP Objective Assessments Start: 03/21/18 15:30 Freq: Status: Active Protocol: Document 03/21/18 15:30 PJM (Rec: 03/21/18 15:49 PJM [id number]) OT Gross Range of Motion Upper Extremity Range of Motion Assessment Within Functional Limits OT Strength Upper Extremity Strength Assessment Within Functional Limits OT- Coordination Assessment Comments Coordination Comments BUE WFL OT-Muscle Tone Assessment Muscle Tone WNL Yes OT Sensation Assessment Comments Summary Comments Pt denies deficits. M9 OT- IP Assessment and Plan Start: 03/21/18 15:30 Freq: Status: Active Protocol: Document 03/22/18 16:21 PJM (Rec: 03/22/18 16:34 PJ [id number]) OT Summary Assessment and Plan Summary Progress Towards Goals Slow Progress due to Medical Issues Assessment Summary Pt continues to demonstrate significant LLE weakness and unable to arise from recliner this session with assist of 1. Provided multiple folded blankets to increase height of recliner prior to pt sitting in chair next time. Pt not safe to return home alone as she still needs significant assist with transfers/ ambulation, lower body dressing, bathing, toileting. Strongly recommend SNF at d/c fo further sub acute rehab services. pt very motivated with good effort and participation. Supportive granddaughter can assist with obtaining necessary bathroom safety equipment. Goals Self-Feeding Goal Moderate Assistance Days to Meet Goals 7 Frequency of Treatment Frequency Of Treatment Once a Day Treatment Plan OT Treatment Plan ADL Training Functional Mobility Patient/Family Education Discharge Planning Discharge Recommendations OT Discharge Recommendations SNF Rehab Home Equipment Needs bariatric BSC and transfer tub bench, hand held shower hose
--- NOTE | 2018-03-22 15:00 | PT.IPTN ---
Current Diagnoses Other spondylosis with radiculopathy, lumbar region (03/22/18) Spinal stenosis, lumbar region with neurogenic claudication (03/22/18) Surgery Performed Operation Date: 03/20/18 09:15 Actual Procedures p Laminectomy L2-3,L3-4 - Margaret Lowe MD Physical Therapy Treatment Note M2 PT-IP Current Condition Start: 03/21/18 08:33 Freq: NEEDED Status: Active Protocol: Document 03/21/18 11:57 RS (Rec: 03/21/18 12:31 RS [id number]) Physical Therapy Current Condition Current Condition Evaluation Date 03/21/18 Treatment Diagnosis L2-L3, L3-4 laminectomies, impaired mobility, focal LLE weakness Onset Date 03/20/18 Precautions Lumbar Precautions Log Roll No Twisting Limit Bending Lifting Restriction of 10 lbs Gait Belt above Incisional Area M3 PT-IP Subjective Start: 03/21/18 08:33 Freq: NEEDED Status: Active Protocol: Document 03/22/18 15:00 GGD (Rec: 03/22/18 16:45 GGD [id number]) Subjective Physical Therapy Visit Type Type Treatment Note Visit Start Time 14:00 Visit Stop Time 15:00 Total Visit Minutes 30 Number of EXPLORATION MANAGER Visits 2 Physical Therapy Visit Comments Patient Comments Pt would like to go back to bed. Therapy Pain Assessment Pain When Pain Assessed At Rest Pain Present Pain Present Denied Pain M4 PT-IP Mobility and Gait Start: 03/21/18 08:33 Freq: NEEDED Status: Active Protocol: Document 03/22/18 15:00 GGD (Rec: 03/22/18 16:45 GGD [id number]) PT-Bed Mobility Assessment Rolling Type of Rolling Log Rolling Level of Assist Standby Assistance Sit to Supine Sit to Supine Moderate Assistance Scooting Scooting to Edge of Bed Standby Assistance PT-Transfer Assessment Sit to and From Stand Sit to and from Stand Moderate Assistance 1 Person Assistance Use of Upper Extremities Equipment Transfer Assistive Device Gait Belt Front Wheeled Walker Transfers Transfer Destination Bed Gait Assessment Gait Gait Assistance Required: Minimum Assistance 1 Person Assist Distance (Feet) 70 Able to Maintain Weight Bearing Status Yes During Gait Assistive Devices Assistive Device Gait Belt Front Wheeled Walker Orthotic/Prosthetic Devices or Brace: No Factors Limiting Gait Function Factors Limiting Gait Function Decreased Activity Tolerance Decreased Strength Pain Poor Balance M5 PT-IP Objective Assessments Start: 03/21/18 08:33 Freq: NEEDED Status: Active Protocol: Document 03/21/18 11:57 RS (Rec: 03/21/18 12:31 RS [id number]) Orientation Orientation/Cognition Level of Alertness Alert Orientation Name Age Birthday Month Date Year Day of Week Place Situation Language Function Ability No Deficits Noted Safety Awareness Understands Safety Issues Memory Description No Deficits Noted Gross Range of Motion Upper Extremity ROM Assessment Within Functional Limits Lower Extremity ROM Assessment Within Functional Limits Strength Upper Extremity Strength Assessment Within Functional Limits Lower Extremity Strength Assessment Bilaterally Impaired Hip R 4/5, L 2+/5 Knee R 4/5, L 3/5 Ankle R 4/5, L 3/5 M6 PT-IP Treatment Start: 03/21/18 08:33 Freq: NEEDED Status: Active Protocol: Document 03/22/18 15:00 GGD (Rec: 03/22/18 16:45 GGD [id number]) Physical Therapy Treatment Education Education Provided Precautions Safety M7 PT-IP Assessment and Plan Start: 03/21/18 08:33 Freq: NEEDED Status: Active Protocol: Document 03/22/18 15:00 GGD (Rec: 03/22/18 16:45 GGD [id number]) PT Summary Assessment and Plan Summary Assessment Summary Pt improved with gait and had decrease in knee buckling. She did need mod A for sit to stand from the chair and for bed mobility. She fatigued with and had increase in unsteadiness with fatigue. Frequency of Treatment Frequency Of Treatment Twice a Day Recommendations To Nursing Amount of Assist Needed 1 Person Assist Discharge Recommendations PT Discharge Recommendations SNF Rehab
[2018-03-22 15:47] VITALS: BP 123/46; PULSE 59; RESP 20; TEMP 36.8; O2SAT 93
[2018-03-22] MEDS: diphenhydrAMINE 25 MG TABLET PO (17:52)
[2018-03-22 19:59] VITALS: BP 119/50; PULSE 62; RESP 20; TEMP 36.6; O2SAT 98
[2018-03-22] MEDS: SENNOSIDES 8.6 MG TABLET 17.2 MG PO (21:25)
[2018-03-23 00:10] VITALS: BP 117/56; PULSE 68; RESP 18; TEMP 36.6; O2SAT 98
[2018-03-23 00:40] VITALS: BP 121/60; PULSE 66; RESP 16; TEMP 36.4; O2SAT 96
[2018-03-23 08:00] VITALS: BP 134/79; PULSE 61; RESP 16; TEMP 36.4; O2SAT 97
[2018-03-23 10:29] VITALS: BP 134/79; PULSE 61
[2018-03-23] MEDS: LOSARTAN 50 MG TABLET PO (10:29)
[2018-03-23] MEDS: hydroCHLOROthiazide 12.5 MG CAPSULE PO (10:30)
[2018-03-23] MEDS: GABAPENTIN 300 MG CAPSULE PO ×2 (10:30→19:09)
[2018-03-23] MEDS: DOCUSATE 100 MG CAPSULE PO ×2 (10:30→19:09)
--- NOTE | 2018-03-23 10:38 | PM.PNPO.1 ---
Subjective Date Patient Seen: 03/23/18 Time Patient Seen: 10:38 Interval history: POD #3 status post lumbar laminectomies with Dr. Lowe. Patient has had weakness with her ambulation, and slow to ambulate. She feels that she is progressing slowly and each day is getting a little better. Her pain is well controlled. Exam Vital Signs (past 8 hours): - 03/23/18 08:00 03/23/18 10:29 Temperature 97.6 F Pulse Rate 61 61 Respiratory Rate 16 Blood Pressure 134/79 134/79 Pulse Oximetry 97 Oxygen Delivery Method Room Air Narrative Exam Narrative: Patient is sitting at bedside chair in no acute distress. She is alert and oriented x3. Dressing on back is CDI. Calves are soft, compressible, nontender bilaterally. She is able to actively dorsiflex and plantar flex. Objective Labs Result Diagrams: 03/21/18 05:07 Assessment & Plan Post-op (1) Status post laminectomy: Current Visit: Yes Status: Acute (2) Hypertension: Current Visit: Yes Status: Acute Postoperative Procedures Operation Date: 03/20/18 09:15 Actual Procedures Side Surgeon p Laminectomy L2-3,L3-4 Margaret Lowe MD POD #3 status post lumbar laminectomies with Dr. Lowe. Continue current pain control. Continue to mobilize with physical therapy. Patient would benefit from SNF for continued care after surgery given her weakness with ambulation. Plan to discharge to a SNF at time of discharge in next 2 days. Quality VTE Deep Vein Thrombosis/Pulmonary Embolism Present on Admission: No
--- NOTE | 2018-03-23 11:43 | OT.IP.TRT ---
Current Diagnoses Essential (primary) hypertension (03/22/18) Other spondylosis with radiculopathy, lumbar region (03/22/18) Spinal stenosis, lumbar region with neurogenic claudication (03/22/18) Other specified postprocedural states (03/22/18) Surgery Performed Operation Date: 03/20/18 09:15 Actual Procedures p Laminectomy L2-3,L3-4 - Margaret Lowe MD Occupational Therapy Treatment Note M2 OT-IP Current Condition Start: 03/21/18 15:30 Freq: Status: Active Protocol: Document 03/21/18 15:30 PJM (Rec: 03/21/18 15:49 PJM [id number]) Occupational Therapy Current Condition Current Condition Evaluation Date 03/21/18 Treatment Diagnosis decreased self care,functional mobility s/p L2-3, L3-4 lami Diagnosis Onset Date 03/20/18 Post Operative Precautions Lumbar Precautions Log Roll No Twisting Limit Bending Lifting Restriction of 10 lbs Gait Belt above Incisional Area M3 OT- IP Subjective and Pain Start: 03/21/18 15:30 Freq: Status: Active Protocol: Document 03/23/18 11:43 PJM (Rec: 03/23/18 15:56 PJM [id number]) OT- Subjective Occupational Therapy Visit Type Type Treatment Note Visit Start Time 11:17 Visit Stop Time 11:43 Total Visit Minutes 26 Occupational Therapy Visit Comments Patient Comments I think I am doing better today. OT Pain Assessment Pain When Pain Assessed After Treatment Pain Present Pain Present Pain Reported Location back Intensity 5 Scale Used Numeric (1 - 10) Description Aching Acute Pain Behaviors Facial Grimacing Management Techniques Distraction Re-positioning Timing of Activity with Medications M4 OT- IP ADL's Start: 03/21/18 15:30 Freq: Status: Active Protocol: Document 03/23/18 11:43 PJM (Rec: 03/23/18 15:56 PJ [id number]) OT ADL-Dressing General Eval Lower Body Dressing Ability Minimal Assistance Areas Needing Assistance Retrieving/Set-up of Clothing Underpants/Brief Assistive Devices Dressing Assistive Devices Data Warehouse Developer Comments OT Dressing Comments Practiced donning and doffing brief with weapons mechanic and pad change. Pt needs min cues for sequence and technique and close CGA for standing balance with FWW; min assist to get brief up in back. OT ADL-Toileting Comments OT Toileting Comments Provided further education re: wide commode and pt states she does not feel she will need toilet paper aid with wider width commode because she can reach better. Provided information re: width of current commode she is using and resources to obtain equipment. M7 OT- IP Mobility and Balance Start: 03/21/18 15:30 Freq: Status: Active Protocol: Document 03/23/18 11:43 PJM (Rec: 03/23/18 15:56 PJM [id number]) OT-Transfer Assessment Sit to and From Stand Sit to and from Stand Contact Guard Assistance Minimal Assistance Comments Mobility Comments Pt doing better with sit to stand x3 this session with higher seat height. Adjusted pads on chair seat to increase comfort. OT- Balance Assessment Sitting Balance and Reactions Static Sitting Balance Ability Good Dynamic Sitting Balance Ability Good Standing Balance and Reactions Static Standing Balance Ability Fair Dynamic Standing Balance Ability Fair M8 OT- IP Objective Assessments Start: 03/21/18 15:30 Freq: Status: Active Protocol: Document 03/21/18 15:30 PJM (Rec: 03/21/18 15:49 PJM [id number]) OT Gross Range of Motion Upper Extremity Range of Motion Assessment Within Functional Limits OT Strength Upper Extremity Strength Assessment Within Functional Limits OT- Coordination Assessment Comments Coordination Comments BUE WFL OT-Muscle Tone Assessment Muscle Tone WNL Yes OT Sensation Assessment Comments Summary Comments Pt denies deficits. M9 OT- IP Assessment and Plan Start: 03/21/18 15:30 Freq: Status: Active Protocol: Document 03/23/18 11:43 PJM (Rec: 03/23/18 15:56 PJM [id number]) OT Summary Assessment and Plan Potential Rehabilitation Potential Good Summary OT Impairments Pain Strength Balance Functional Mobility Grooming Dressing Toileting Bathing Toilet Transfers Shower Transfers Progress Towards Goals Progressing Toward Goals Assessment Summary Pt making slow steady daily progress but still needs significant assist with all functional mobility and most self care tasks; and fatigues easily. Pt needs higher chair surfaces to increase indep and safety with sit to stand ( at least 21). Pt needs to be completely indep with all self care and light IADLS as she lives alone. Recommend SNF for further rehab at d/c. Pt very motivated with good effort and participation. Goals Days to Meet Goals 7 Frequency of Treatment Frequency Of Treatment Once a Day Treatment Plan OT Treatment Plan ADL Training Functional Mobility Patient/Family Education Discharge Planning Discharge Recommendations OT Discharge Recommendations SNF Rehab Home Equipment Needs bariatric BSC and transfer tub bench, hand held shower hose, platform under chair at home
--- NOTE | 2018-03-23 12:30 | PT.IPTN ---
Current Diagnoses Essential (primary) hypertension (03/22/18) Other spondylosis with radiculopathy, lumbar region (03/22/18) Spinal stenosis, lumbar region with neurogenic claudication (03/22/18) Other specified postprocedural states (03/22/18) Surgery Performed Operation Date: 03/20/18 09:15 Actual Procedures p Laminectomy L2-3,L3-4 - Margaret Lowe MD Physical Therapy Treatment Note M2 PT-IP Current Condition Start: 03/21/18 08:33 Freq: NEEDED Status: Active Protocol: Document 03/21/18 11:57 RS (Rec: 03/21/18 12:31 RS [id number]) Physical Therapy Current Condition Current Condition Evaluation Date 03/21/18 Treatment Diagnosis L2-L3, L3-4 laminectomies, impaired mobility, focal LLE weakness Onset Date 03/20/18 Precautions Lumbar Precautions Log Roll No Twisting Limit Bending Lifting Restriction of 10 lbs Gait Belt above Incisional Area M3 PT-IP Subjective Start: 03/21/18 08:33 Freq: NEEDED Status: Active Protocol: Document 03/23/18 12:17 GGD (Rec: 03/23/18 12:30 GGD [id number]) Subjective Physical Therapy Visit Type Type Treatment Note Visit Start Time 11:40 Visit Stop Time 12:10 Total Visit Minutes 30 Number of TONG HOOKER Visits 3 Physical Therapy Visit Comments Patient Comments Pt willing to walk. Therapy Pain Assessment Pain When Pain Assessed At Rest Pain Present Pain Present Denied Pain M4 PT-IP Mobility and Gait Start: 03/21/18 08:33 Freq: NEEDED Status: Active Protocol: Document 03/23/18 12:17 GGD (Rec: 03/23/18 12:30 GGD [id number]) PT-Bed Mobility Assessment Rolling Type of Rolling Log Rolling Roll to Left Level of Assist Standby Assistance Supine to Sit Supine to Sit Minimal Assistance Sit to Supine Sit to Supine Minimal Assistance Scooting Scooting to Edge of Bed Standby Assistance PT-Transfer Assessment Sit to and From Stand Sit to and from Stand Moderate Assistance 1 Person Assistance Use of Upper Extremities Equipment Transfer Assistive Device Gait Belt Front Wheeled Walker Transfers Transfer Destination Bed Chair Gait Assessment Gait Gait Assistance Required: Minimum Assistance 1 Person Assist Distance (Feet) 140 Able to Maintain Weight Bearing Status Yes During Gait Assistive Devices Assistive Device Gait Belt Front Wheeled Walker Orthotic/Prosthetic Devices or Brace: No Factors Limiting Gait Function Factors Limiting Gait Function Decreased Activity Tolerance Decreased Strength Pain Poor Balance M5 PT-IP Objective Assessments Start: 03/21/18 08:33 Freq: NEEDED Status: Active Protocol: Document 03/21/18 11:57 RS (Rec: 03/21/18 12:31 RS [id number]) Orientation Orientation/Cognition Level of Alertness Alert Orientation Name Age Birthday Month Date Year Day of Week Place Situation Language Function Ability No Deficits Noted Safety Awareness Understands Safety Issues Memory Description No Deficits Noted Gross Range of Motion Upper Extremity ROM Assessment Within Functional Limits Lower Extremity ROM Assessment Within Functional Limits Strength Upper Extremity Strength Assessment Within Functional Limits Lower Extremity Strength Assessment Bilaterally Impaired Hip R 4/5, L 2+/5 Knee R 4/5, L 3/5 Ankle R 4/5, L 3/5 M6 PT-IP Treatment Start: 03/21/18 08:33 Freq: NEEDED Status: Active Protocol: Document 03/23/18 12:17 GGD (Rec: 03/23/18 12:30 GGD [id number]) Physical Therapy Treatment Exercises Exercises Ankle Pumps Gluteal Sets Seated Knee Flexion/Extension Education Education Provided Precautions Safety M7 PT-IP Assessment and Plan Start: 03/21/18 08:33 Freq: NEEDED Status: Active Protocol: Document 03/23/18 12:17 GGD (Rec: 03/23/18 12:30 GGD [id number]) PT Summary Assessment and Plan Summary Assessment Summary Pt improving slowly with mobility. She was able to progress gait distance with less knee buckling and heavy use of UE on FWW. She improve with bed mobility and needed less assist. Pt need assist for sit to stand and controled sit. Frequency of Treatment Frequency Of Treatment Twice a Day Recommendations To Nursing Amount of Assist Needed 1 Person Assist Discharge Recommendations PT Discharge Recommendations SNF Rehab
--- NOTE | 2018-03-23 13:18 | CM.DPC ---
Referral faxed to [facility]
[2018-03-23] MEDS: diphenhydrAMINE 25 MG TABLET PO (15:24)
[2018-03-23 15:42] VITALS: BP 103/63; PULSE 76; RESP 20; TEMP 36.8; O2SAT 93
--- NOTE | 2018-03-23 15:50 | PT.IPTN ---
Current Diagnoses Essential (primary) hypertension (03/22/18) Other spondylosis with radiculopathy, lumbar region (03/22/18) Spinal stenosis, lumbar region with neurogenic claudication (03/22/18) Other specified postprocedural states (03/22/18) Surgery Performed Operation Date: 03/20/18 09:15 Actual Procedures p Laminectomy L2-3,L3-4 - Margaret Lowe MD Physical Therapy Treatment Note M2 PT-IP Current Condition Start: 03/21/18 08:33 Freq: NEEDED Status: Active Protocol: Document 03/21/18 11:57 RS (Rec: 03/21/18 12:31 RS [id number]) Physical Therapy Current Condition Current Condition Evaluation Date 03/21/18 Treatment Diagnosis L2-L3, L3-4 laminectomies, impaired mobility, focal LLE weakness Onset Date 03/20/18 Precautions Lumbar Precautions Log Roll No Twisting Limit Bending Lifting Restriction of 10 lbs Gait Belt above Incisional Area M3 PT-IP Subjective Start: 03/21/18 08:33 Freq: NEEDED Status: Active Protocol: Document 03/23/18 16:21 GGD (Rec: 03/23/18 16:25 GGD [email or web address]) Subjective Physical Therapy Visit Type Type Treatment Note Visit Start Time 15:50 Visit Stop Time 15:25 Total Visit Minutes 25 Number of PROFESSIONAL ORGANIZER Visits 4 Physical Therapy Visit Comments Patient Comments Pt states she stiff from sitting. Therapy Pain Assessment Pain When Pain Assessed At Rest Pain Present Pain Present Denied Pain M4 PT-IP Mobility and Gait Start: 03/21/18 08:33 Freq: NEEDED Status: Active Protocol: Document 03/23/18 16:21 GGD (Rec: 03/23/18 16:25 GGD [id number]) PT-Transfer Assessment Sit to and From Stand Sit to and from Stand Minimal Assistance 1 Person Assistance Use of Upper Extremities Equipment Transfer Assistive Device Gait Belt Front Wheeled Walker Transfers Transfer Destination Bedside Commode Comments Mobility Comments [place] [facility] [place] to assist with shower. Pt need min A and mod cues for shower transfer with the use of grab bars. Gait Assessment Gait Gait Assistance Required: Contact Guard Assist 1 Person Assist Distance (Feet) 140 Able to Maintain Weight Bearing Status Yes During Gait Assistive Devices Assistive Device Gait Belt Front Wheeled Walker Orthotic/Prosthetic Devices or Brace: No Gait Deviations General Gait Pattern Antalgic Decreased Stride Length Decreased Feet Clearance Flexed Trunk Factors Limiting Gait Function Factors Limiting Gait Function Decreased Activity Tolerance Decreased Strength Pain Poor Balance M5 PT-IP Objective Assessments Start: 03/21/18 08:33 Freq: NEEDED Status: Active Protocol: Document 03/21/18 11:57 RS (Rec: 03/21/18 12:31 RS [id number]) Orientation Orientation/Cognition Level of Alertness Alert Orientation Name Age Birthday Month Date Year Day of Week Place Situation Language Function Ability No Deficits Noted Safety Awareness Understands Safety Issues Memory Description No Deficits Noted Gross Range of Motion Upper Extremity ROM Assessment Within Functional Limits Lower Extremity ROM Assessment Within Functional Limits Strength Upper Extremity Strength Assessment Within Functional Limits Lower Extremity Strength Assessment Bilaterally Impaired Hip R 4/5, L 2+/5 Knee R 4/5, L 3/5 Ankle R 4/5, L 3/5 M6 PT-IP Treatment Start: 03/21/18 08:33 Freq: NEEDED Status: Active Protocol: Document 03/23/18 16:21 GGD (Rec: 03/23/18 16:25 GGD [email or web address]) Physical Therapy Treatment Education Education Provided Precautions Safety M7 PT-IP Assessment and Plan Start: 03/21/18 08:33 Freq: NEEDED Status: Active Protocol: Document 03/23/18 16:21 GGD (Rec: 03/23/18 16:25 GGD [email or web address]) PT Summary Assessment and Plan Summary Assessment Summary Pt improving slowly with balance and gait. She needed less assist with sit <> stand from chair. She need cues and assist for safe transfer to shower with heavy use of UE. She needs UE and FWW for all mobility, balance and safety. Frequency of Treatment Frequency Of Treatment Twice a Day Recommendations To Nursing Amount of Assist Needed 1 Person Assist Discharge Recommendations PT Discharge Recommendations SNF Rehab
[2018-03-23] MEDS: SENNOSIDES 8.6 MG TABLET 17.2 MG PO (19:09)
[2018-03-24 07:50] VITALS: BP 117/67; PULSE 67; RESP 16; TEMP 36.7; O2SAT 97
--- NOTE | 2018-03-24 08:21 | CM.DPC ---
Addendum entered by Meredith Lopez LPN 03/24/18 08:43: Deana is updated re pt's ht,wt and will look at appropriate w/c size for transport as well as bed size at the facility. Original Note: Met yesterday with pt and her daughter re d/c issues and options. SNF is recommended by the therapy team and pt and her daughter very much agree with need. SNF choice list: given. Decision: [facility] Referral: Deana and [facility]: accepted. SNF will provide w/c transport. Of note: pt is 5'10 and 282 lbs P: [facility] tomorrow if stable for same. Need: PASRR Admission status: 03/20: SDC to OBS 03/21: to INPT: 03/22. Confirmed by UR STEFANIE Bridges yesterday.
[2018-03-24 08:28] VITALS: BP 117/67
[2018-03-24] MEDS: LOSARTAN 50 MG TABLET PO (08:28)
[2018-03-24] MEDS: DOCUSATE 100 MG CAPSULE PO ×2 (08:29→20:19)
[2018-03-24] MEDS: GABAPENTIN 300 MG CAPSULE PO ×2 (08:29→20:19)
[2018-03-24] MEDS: hydroCHLOROthiazide 12.5 MG CAPSULE PO (08:29)
[2018-03-24] MEDS: diphenhydrAMINE 25 MG TABLET PO (08:29)
--- NOTE | 2018-03-24 09:44 | PM.DS.1 ---
History of Present Illness Date Patient Seen: 03/24/18 Chief complaint: [id number] Narrative: Patient seen bedside s/p L2-3, L3-4 laminectomy POD #4. Doing well, pain is controlled, denies SOB, CP, N/V, numbness/tingling, and calf pain. Patient is ready for discharge to SNF today, 03/24/18. Discharge Providers Date of admission: 03/22/18 15:22 Consults: 03/20/18 16:00 Consult to Occupational Therapy Evaluate & Treat Comment: Physician Instructions: Evaluate and treat Consult to Physical Therapy Evaluate & Treat Comment: Physician Instructions: Evaluate and Treat Discharge provider: Vinita Burns PA-C Summary Discharge Diagnosis: 1. Lumbar stenosis with neurogenic claudication 2. 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 Lowe. Patient tolerated the procedure well with no major complications. Patient was transferred to the acute care floor where she was evaluated by PT/OT and recommended for discharge to a SNF. Patient was stable and ready for d/c on 03/24/18. Status at Discharge Cognitive/behavioral status at discharge: Alert and oriented Functional status at discharge: uses cane/walker Overall status at discharge: patient is progressing back to baseline Time Spent with Patient Less than 30 minutes Exam Vital Signs (past 8 hours): - 03/24/18 07:50 03/24/18 08:28 Temperature 98.0 F Pulse Rate 67 Respiratory Rate 16 Blood Pressure 117/67 117/67 Pulse Oximetry 97 Oxygen Delivery Method Room Air Narrative Exam Narrative: WDWN NAD A&Ox3. Lumbar dressing is CDI, no signs of erythema or drainage. Objective Labs Result Diagrams: 03/21/18 05:07 Discharge Plan Discharge Plan Patient Disposition: SNF Transfer to: [facility] Discharge Med Rec/Prescriptions Prescriptions: New oxycodone 5 mg capsule 5 mg PO Q4-6H PRN (Reason: pain) Qty: 30 RF: 0 hydroxyzine pamoate [Vistaril] 25 mg capsule 25 mg PO Q6-8H PRN (Reason: nausea and vomiting) Qty: 20 RF: 0 Continue multivitamin Tablet 1 tab PO DAILY RF: 0 acetaminophen [Acetaminophen Extra Strength] 500 mg Tablet 1 - 2 tab PO PRN PRN (Reason: arthritis) RF: 0 gabapentin 300 mg Capsule 300 mg PO BID RF: 0 losartan-hydrochlorothiazide 50-12.5 mg Tablet 50 mg PO DAILY RF: 0 omega-3 fatty acids 500 mg Capsule 500 mg PO DAILY RF: 0 cholecalciferol (vitamin D3) 2,000 unit Tablet 2,000 mg PO DAILY RF: 0 Follow up/Referrals: Margaret Lowe MD [Physician] - (Follow up at your previously scheduled post-op appointment in 2 weeks.) Provider Discharge Instructions Diet: Diet as Tolerated and Regular Activity: Limit bending twisting and lifting Keep incision clean and dry May remove dressing in 4 days Keep incision covered to shower for 12 days, keep dry Cold/Heat Therapy: Apply ice to incision site 20 minutes at a time at least hourly while awake. Skin/Wound/Dressing Care Report to your healthcare provider any signs of infection, such as:: chills, fever, night sweats, increased pain and unusual drainage Special Rehabilitation Services Reason for rehabilitation: Post-operative therapy Rehab type: Physical therapy and Occupational therapy Visit Report/Discharge Packet Instructions: DI for Laminectomy Stand Alone Forms: Surgery Discharge Discharge Data Attending Provider: Margaret Lowe Admit Date/Time: 03/22/18 15:22 Quality VTE Deep Vein Thrombosis/Pulmonary Embolism Present on Admission: No
--- NOTE | 2018-03-24 10:06 | P.PN_ITS ---
Subjective Date Patient Seen: 03/24/18 Interval history: Patient seen at bedside status post L2-L3-L3-L4 laminectomy postop day 4. patient is doing well, her pain is well controlled. She does complain of a rash on her upper back that is pruritic. She has been taking benadryl for it with no efficacy. she denies chest pain shortness of breath cough nausea vomiting or neurological deficits. Exam Vital Signs (past 8 hours): - 03/24/18 07:50 03/24/18 08:28 Temperature 98.0 F Pulse Rate 67 Respiratory Rate 16 Blood Pressure 117/67 117/67 Pulse Oximetry 97 Oxygen Delivery Method Room Air Narrative Exam Narrative: Well-developed well-nourished no acute distress. Alert and oriented x3. Examination patient has a contact dermatitis on her upper back over her shoulder blades. The incision is clean dry and intact covered with a dressing. No signs of erythema or drainage. Calves are soft and compressible with no focal deficits noted. Objective Labs Result Diagrams: 03/21/18 05:07 Assessment & Plan Post-op Postoperative Procedures Operation Date: 03/20/18 09:15 Actual Procedures Side Surgeon p Laminectomy L2-3,L3-4 Margaret Lowe MD Postoperative status: doing well Postoperative plan: routine post-op care and see orders Postoperative plan narrative: Patient will continue with physical therapy today as well as occupational therapy and she will receive pain medication as needed. Added hydrocortisone cream for dermatitis on her back. Discharged to [facility] tomorrow. Time Spent With Patient less than 15 minutes Quality VTE Deep Vein Thrombosis/Pulmonary Embolism Present on Admission: No
--- NOTE | 2018-03-24 10:10 | CM.DPC ---
DCP: continued: Ortho PA was here this morning and her progress note is reviewed. Pt will d/c tomorrow to [facility] as per plan. CM DCP team will be following.
--- NOTE | 2018-03-24 11:50 | PT.IPTN ---
Current Diagnoses Essential (primary) hypertension (03/22/18) Other spondylosis with radiculopathy, lumbar region (03/22/18) Spinal stenosis, lumbar region with neurogenic claudication (03/22/18) Other specified postprocedural states (03/22/18) Surgery Performed Operation Date: 03/20/18 09:15 Actual Procedures p Laminectomy L2-3,L3-4 - Margaret Lowe MD Physical Therapy Treatment Note M2 PT-IP Current Condition Start: 03/21/18 08:33 Freq: NEEDED Status: Active Protocol: Document 03/21/18 11:57 RS (Rec: 03/21/18 12:31 RS [id number]) Physical Therapy Current Condition Current Condition Evaluation Date 03/21/18 Treatment Diagnosis L2-L3, L3-4 laminectomies, impaired mobility, focal LLE weakness Onset Date 03/20/18 Precautions Lumbar Precautions Log Roll No Twisting Limit Bending Lifting Restriction of 10 lbs Gait Belt above Incisional Area M3 PT-IP Subjective Start: 03/21/18 08:33 Freq: NEEDED Status: Active Protocol: Document 03/24/18 11:50 GGD (Rec: 03/24/18 12:16 GGD [id number]) Subjective Physical Therapy Visit Type Type Treatment Note Visit Start Time 11:25 Visit Stop Time 11:50 Total Visit Minutes 25 Number of SCALE CLERK Visits 5 Physical Therapy Visit Comments Patient Comments Pt states she been up to bathroom a lot today. Therapy Pain Assessment Pain When Pain Assessed At Rest Pain Present Pain Present Denied Pain M4 PT-IP Mobility and Gait Start: 03/21/18 08:33 Freq: NEEDED Status: Active Protocol: Document 03/24/18 11:50 GGD (Rec: 03/24/18 12:16 GGD [id number]) PT-Bed Mobility Assessment Rolling Type of Rolling Log Rolling Roll to Left Level of Assist Standby Assistance Sit to Supine Sit to Supine Minimal Assistance Scooting Scooting to Edge of Bed Standby Assistance PT-Transfer Assessment Sit to and From Stand Sit to and from Stand Contact Guard Assistance 1 Person Assistance Use of Upper Extremities Equipment Transfer Assistive Device Gait Belt Front Wheeled Walker Transfers Transfer Destination Bed Comments Mobility Comments Up to toilet with NSG. Gait Assessment Gait Gait Assistance Required: Contact Guard Assist 1 Person Assist Distance (Feet) 160 Able to Maintain Weight Bearing Status Yes During Gait Assistive Devices Assistive Device Gait Belt Front Wheeled Walker Orthotic/Prosthetic Devices or Brace: No Gait Deviations General Gait Pattern Antalgic Decreased Stride Length Decreased Feet Clearance Flexed Trunk Factors Limiting Gait Function Factors Limiting Gait Function Decreased Activity Tolerance Decreased Strength Pain Poor Balance M5 PT-IP Objective Assessments Start: 03/21/18 08:33 Freq: NEEDED Status: Active Protocol: Document 03/21/18 11:57 RS (Rec: 03/21/18 12:31 RS [id number]) Orientation Orientation/Cognition Level of Alertness Alert Orientation Name Age Birthday Month Date Year Day of Week Place Situation Language Function Ability No Deficits Noted Safety Awareness Understands Safety Issues Memory Description No Deficits Noted Gross Range of Motion Upper Extremity ROM Assessment Within Functional Limits Lower Extremity ROM Assessment Within Functional Limits Strength Upper Extremity Strength Assessment Within Functional Limits Lower Extremity Strength Assessment Bilaterally Impaired Hip R 4/5, L 2+/5 Knee R 4/5, L 3/5 Ankle R 4/5, L 3/5 M6 PT-IP Treatment Start: 03/21/18 08:33 Freq: NEEDED Status: Active Protocol: Document 03/24/18 11:50 GGD (Rec: 03/24/18 12:16 GGD [id number]) Physical Therapy Treatment Education Education Provided Precautions M7 PT-IP Assessment and Plan Start: 03/21/18 08:33 Freq: NEEDED Status: Active Protocol: Document 03/24/18 11:50 GGD (Rec: 03/24/18 12:16 GGD [id number]) PT Summary Assessment and Plan Summary Assessment Summary Pt improving slowly. She needs less assistance wiht sit to stand from a higher surface. She needs assistance for bed mobility. She fatigues with gait, but no knee buckling. She not safe to return home alone, due to needing assist with bed moblity and sit to stand from standard height sits. Frequency of Treatment Frequency Of Treatment Twice a Day Recommendations To Nursing Amount of Assist Needed 1 Person Assist Discharge Recommendations PT Discharge Recommendations SNF Rehab
--- NOTE | 2018-03-24 12:22 | OT.IP.TRT ---
Current Diagnoses Essential (primary) hypertension (03/22/18) Other spondylosis with radiculopathy, lumbar region (03/22/18) Spinal stenosis, lumbar region with neurogenic claudication (03/22/18) Other specified postprocedural states (03/22/18) Surgery Performed Operation Date: 03/20/18 09:15 Actual Procedures p Laminectomy L2-3,L3-4 - Margaret Lowe MD Occupational Therapy Treatment Note M2 OT-IP Current Condition Start: 03/21/18 15:30 Freq: Status: Active Protocol: Document 03/21/18 15:30 PJM (Rec: 03/21/18 15:49 PJM [id number]) Occupational Therapy Current Condition Current Condition Evaluation Date 03/21/18 Treatment Diagnosis decreased self care,functional mobility s/p L2-3, L3-4 lami Diagnosis Onset Date 03/20/18 Post Operative Precautions Lumbar Precautions Log Roll No Twisting Limit Bending Lifting Restriction of 10 lbs Gait Belt above Incisional Area M3 OT- IP Subjective and Pain Start: 03/21/18 15:30 Freq: Status: Active Protocol: Document 03/24/18 11:20 CCC (Rec: 03/24/18 12:22 CCC [id number]) OT- Subjective Occupational Therapy Visit Type Type Patient Refusal Notes Attempted OT treatment with pt , pt having visitors, and pt states has good understanding for all OT needs and not wanting to have OT today.
--- NOTE | 2018-03-24 14:40 | PT.IPTN ---
Current Diagnoses Essential (primary) hypertension (03/22/18) Other spondylosis with radiculopathy, lumbar region (03/22/18) Spinal stenosis, lumbar region with neurogenic claudication (03/22/18) Other specified postprocedural states (03/22/18) Surgery Performed Operation Date: 03/20/18 09:15 Actual Procedures p Laminectomy L2-3,L3-4 - Margaret Lowe MD Physical Therapy Treatment Note M2 PT-IP Current Condition Start: 03/21/18 08:33 Freq: NEEDED Status: Active Protocol: Document 03/21/18 11:57 RS (Rec: 03/21/18 12:31 RS [id number]) Physical Therapy Current Condition Current Condition Evaluation Date 03/21/18 Treatment Diagnosis L2-L3, L3-4 laminectomies, impaired mobility, focal LLE weakness Onset Date 03/20/18 Precautions Lumbar Precautions Log Roll No Twisting Limit Bending Lifting Restriction of 10 lbs Gait Belt above Incisional Area M3 PT-IP Subjective Start: 03/21/18 08:33 Freq: NEEDED Status: Active Protocol: Document 03/24/18 14:45 GGD (Rec: 03/24/18 15:19 GGD [id number]) Subjective Physical Therapy Visit Type Type Treatment Note Visit Start Time 14:20 Visit Stop Time 14:45 Total Visit Minutes 25 Number of PROGRAM MANAGER ENVIRONMENTAL PLANNING Visits 6 Physical Therapy Visit Comments Patient Comments Pt willing to get up and walk. Therapy Pain Assessment Pain When Pain Assessed At Rest Pain Present Pain Present Denied Pain M4 PT-IP Mobility and Gait Start: 03/21/18 08:33 Freq: NEEDED Status: Active Protocol: Document 03/24/18 14:45 GGD (Rec: 03/24/18 15:19 GGD [id number]) PT-Bed Mobility Assessment Rolling Type of Rolling Log Rolling Roll to Left Level of Assist Standby Assistance Supine to Sit Supine to Sit Contact Guard Assistance Bedrails Scooting Scooting to Edge of Bed Standby Assistance PT-Transfer Assessment Sit to and From Stand Sit to and from Stand Minimal Assistance 1 Person Assistance Use of Upper Extremities Equipment Transfer Assistive Device Gait Belt Front Wheeled Walker Transfers Transfer Destination Chair Gait Assessment Gait Gait Assistance Required: Contact Guard Assist 1 Person Assist Distance (Feet) 270 Able to Maintain Weight Bearing Status Yes During Gait Assistive Devices Assistive Device Gait Belt Front Wheeled Walker Orthotic/Prosthetic Devices or Brace: No Gait Deviations General Gait Pattern Antalgic Decreased Stride Length Decreased Feet Clearance Flexed Trunk Factors Limiting Gait Function Factors Limiting Gait Function Decreased Activity Tolerance Decreased Strength Pain Poor Balance M5 PT-IP Objective Assessments Start: 03/21/18 08:33 Freq: NEEDED Status: Active Protocol: Document 03/21/18 11:57 RS (Rec: 03/21/18 12:31 RS [id number]) Orientation Orientation/Cognition Level of Alertness Alert Orientation Name Age Birthday Month Date Year Day of Week Place Situation Language Function Ability No Deficits Noted Safety Awareness Understands Safety Issues Memory Description No Deficits Noted Gross Range of Motion Upper Extremity ROM Assessment Within Functional Limits Lower Extremity ROM Assessment Within Functional Limits Strength Upper Extremity Strength Assessment Within Functional Limits Lower Extremity Strength Assessment Bilaterally Impaired Hip R 4/5, L 2+/5 Knee R 4/5, L 3/5 Ankle R 4/5, L 3/5 M6 PT-IP Treatment Start: 03/21/18 08:33 Freq: NEEDED Status: Active Protocol: Document 03/24/18 14:45 GGD (Rec: 03/24/18 15:19 GGD [id number]) Physical Therapy Treatment Education Education Provided Precautions M7 PT-IP Assessment and Plan Start: 03/21/18 08:33 Freq: NEEDED Status: Active Protocol: Document 03/24/18 14:45 GGD (Rec: 03/24/18 15:19 GGD [id number]) PT Summary Assessment and Plan Summary Assessment Summary Pt slowly improving with bed mobilty. She still needs assist with bed mobility and sit to stand. She continue to have weaker left LE Frequency of Treatment Frequency Of Treatment Twice a Day Recommendations To Nursing Amount of Assist Needed 1 Person Assist Discharge Recommendations PT Discharge Recommendations SNF Rehab
[2018-03-24 15:00] VITALS: BP 143/66; PULSE 72; RESP 18; TEMP 36.8; O2SAT 96
[2018-03-24] MEDS: SENNOSIDES 8.6 MG TABLET 17.2 MG PO (20:19)
[2018-03-24] MEDS: HYDROCORTISONE 2.5% CREAM 30 GM 1 APPLIC TOP (20:19)
[2018-03-24 20:37] VITALS: BP 109/65; PULSE 67; RESP 20; TEMP 36.6; O2SAT 96
[2018-03-25 00:45] VITALS: BP 115/42; PULSE 69; RESP 16; TEMP 36.2; O2SAT 97
[2018-03-25 08:00] VITALS: BP 102/60; PULSE 62; RESP 18; TEMP 36.6; O2SAT 97
[2018-03-25] MEDS: diphenhydrAMINE 25 MG TABLET PO (08:23)
[2018-03-25] MEDS: DOCUSATE 100 MG CAPSULE PO (08:23)
[2018-03-25] MEDS: hydroCHLOROthiazide 12.5 MG CAPSULE PO (08:23)
[2018-03-25] MEDS: LOSARTAN 50 MG TABLET PO (08:23)
[2018-03-25] MEDS: GABAPENTIN 300 MG CAPSULE PO (08:23)
[2018-03-25] MEDS: HYDROCORTISONE 2.5% CREAM 30 GM 1 APPLIC TOP (08:24)
--- NOTE | 2018-03-25 09:21 | PM.DS.1 ---
History of Present Illness Date Patient Seen: 03/25/18 Time Patient Seen: 09:22 Chief complaint: [id number] Narrative: Details of the patient's H&P can be found in the electronic chart. Discharge Providers Date of admission: 03/22/18 15:22 Consults: 03/20/18 16:00 Consult to Occupational Therapy Evaluate & Treat Comment: Physician Instructions: Evaluate and treat Consult to Physical Therapy Evaluate & Treat Comment: Physician Instructions: Evaluate and Treat Discharge provider: Charlee Starks PA-C Summary Discharge Diagnosis: 1. L2-3, L3-4 spinal stenosis 2. Neurogenic claudication Hospital Course: Patient was admitted and taken operating room where she had a L2-3, L3-[address] Lowe. She recovered well as transfer to the floor for care. Patient has some pain control issues the 1st few days postoperatively but pain has resolved since then. Patient was also slow to ambulate the 1st couple of days postoperatively. On postop day 4 she developed the rash on the back area which is being treated with Benadryl and hydrocortisone cream. Postop day 5 patient is ready to be discharged to [facility] for further therapy and rehab. Exam Vital Signs (past 8 hours): Oxygen Delivery Method Room Air Narrative Exam Narrative: Patient in bed. Alert orient x3. Back dressing clean dry and intact. Bilateral calves soft and nontender. Five hundred five BLE. Neurovascular status intact. Objective Labs Result Diagrams: 03/21/18 05:07 Discharge Plan Discharge Plan Patient Disposition: SNF Transfer to: [facility] Under care of provider: PCP Transportation: Facility vehicle I certify the postop hospital fci care is medically necessary on a continuing basis for any conditions for which he/ she received care during this hospitalization.: Yes The receiving facility has agreed to accept transfer and provide medical treatment.: Yes Discharge Med Rec/Prescriptions Prescriptions: New oxycodone 5 mg capsule 5 mg PO Q4-6H PRN (Reason: pain) Qty: 30 RF: 0 hydroxyzine pamoate [Vistaril] 25 mg capsule 25 mg PO Q6-8H PRN (Reason: nausea and vomiting) Qty: 20 RF: 0 Continue multivitamin Tablet 1 tab PO DAILY RF: 0 acetaminophen [Acetaminophen Extra Strength] 500 mg Tablet 1 - 2 tab PO PRN PRN (Reason: arthritis) RF: 0 gabapentin 300 mg Capsule 300 mg PO BID RF: 0 losartan-hydrochlorothiazide 50-12.5 mg Tablet 50 mg PO DAILY RF: 0 omega-3 fatty acids 500 mg Capsule 500 mg PO DAILY RF: 0 cholecalciferol (vitamin D3) 2,000 unit Tablet 2,000 mg PO DAILY RF: 0 Follow up/Referrals: Margaret Lowe MD [Physician] - (Follow up at your previously scheduled post-op appointment in 2 weeks.) Discharge Health Status Brief summary of current health status: Patient had a laminectomy by Dr. Lowe at [facility] on 03/20/2018. A history of hypertension. Multidrug resistant organism: No MDRO MDRO Verified by culture: Yes Precautions: [place] Provider Discharge Instructions Diet: Diet as Tolerated and Regular Liquid consistency: Normal/Thin Food texture: Regular Activity: Activity as tolerated. Ambulate with a walker/cane. Cold/Heat Therapy: Apply ice to incision site 20 minutes at a time at least hourly while awake. Skin/Wound/Dressing Care Report to your healthcare provider any signs of infection, such as:: chills, fever, night sweats, increased pain and unusual drainage Dressing: Keep dressing clean dry and intact. May shower but no baths. Special Rehabilitation Services Reason for rehabilitation: Post-operative therapy Rehab type: Physical therapy and Occupational therapy Restrictions to mobility: No lifting bending or twisting. Visit Report/Discharge Packet Instructions: DI for Laminectomy Stand Alone Forms: Surgery Discharge Discharge Data Attending Provider: Margaret Lowe Admit Date/Time: 03/22/18 15:22 Quality VTE Deep Vein Thrombosis/Pulmonary Embolism Present on Admission: No
--- NOTE | 2018-03-25 09:22 | OT.IP.TRT ---
Current Diagnoses Essential (primary) hypertension (03/22/18) Other spondylosis with radiculopathy, lumbar region (03/22/18) Spinal stenosis, lumbar region with neurogenic claudication (03/22/18) Other specified postprocedural states (03/22/18) Surgery Performed Operation Date: 03/20/18 09:15 Actual Procedures p Laminectomy L2-3,L3-4 - Margaret Lowe MD Occupational Therapy Treatment Note M2 OT-IP Current Condition Start: 03/21/18 15:30 Freq: Status: Active Protocol: Document 03/21/18 15:30 PJM (Rec: 03/21/18 15:49 PJM [id number]) Occupational Therapy Current Condition Current Condition Evaluation Date 03/21/18 Treatment Diagnosis decreased self care,functional mobility s/p L2-3, L3-4 lami Diagnosis Onset Date 03/20/18 Post Operative Precautions Lumbar Precautions Log Roll No Twisting Limit Bending Lifting Restriction of 10 lbs Gait Belt above Incisional Area M3 OT- IP Subjective and Pain Start: 03/21/18 15:30 Freq: Status: Active Protocol: Document 03/25/18 09:17 CCC (Rec: 03/25/18 09:22 [facility] [id number]) OT- Subjective Occupational Therapy Visit Type Type Administrative Note Visit Start Time 08:05 Visit Stop Time 08:10 Total Visit Minutes 5 Notes Spoke to pt regarding what to expect in rehab, questions to ask OT there. Pt concerned about being able to go the bathroom in time if having to wait for assistance there. Suggested pt to ask skilled OT to assess for safety for use of BSC next to bed at night, and safety to use bathroom during the day.
--- NOTE | 2018-03-25 09:28 | P.DS_ITS ---
History of Present Illness Date Patient Seen: 03/25/18 Time Patient Seen: 09:22 Chief complaint: [id number] Narrative: Details of the patient's H&P can be found in the electronic chart. Discharge Providers Date of admission: 03/22/18 15:22 Consults: 03/20/18 16:00 Consult to Occupational Therapy Evaluate & Treat Comment: Physician Instructions: Evaluate and treat Consult to Physical Therapy Evaluate & Treat Comment: Physician Instructions: Evaluate and Treat Discharge provider: Charlee Starks PA-C Summary Discharge Diagnosis: 1. L2-3, L3-4 spinal stenosis 2. Neurogenic claudication Hospital Course: Patient was admitted and taken operating room where she had a L2-3, L3-[address] Lowe. She recovered well as transfer to the floor for care. Patient has some pain control issues the 1st few days postoperatively but pain has resolved since then. Patient was also slow to ambulate the 1st couple of days postoperatively. On postop day 4 she developed the rash on the back area which is being treated with Benadryl and hydrocortisone cream. Postop day 5 patient is ready to be discharged to [facility] for further therapy and rehab. Exam Vital Signs (past 8 hours): Oxygen Delivery Method Room Air Narrative Exam Narrative: Patient in bed. Alert orient x3. Back dressing clean dry and intact. Bilateral calves soft and nontender. Five hundred five BLE. Neurovascular status intact. Objective Labs Result Diagrams: 03/21/18 05:07 Discharge Plan Discharge Plan Patient Disposition: SNF Transfer to: [facility] Under care of provider: PCP Transportation: Facility vehicle I certify the postop hospital shelter care is medically necessary on a continuing basis for any conditions for which he/ she received care during this hospitalization.: Yes The receiving facility has agreed to accept transfer and provide medical treatment.: Yes Discharge Med Rec/Prescriptions Prescriptions: New oxycodone 5 mg capsule 5 mg PO Q4-6H PRN (Reason: pain) Qty: 30 RF: 0 hydroxyzine pamoate [Vistaril] 25 mg capsule 25 mg PO Q6-8H PRN (Reason: nausea and vomiting) Qty: 20 RF: 0 Continue multivitamin Tablet 1 tab PO DAILY RF: 0 acetaminophen [Acetaminophen Extra Strength] 500 mg Tablet 1 - 2 tab PO PRN PRN (Reason: arthritis) RF: 0 gabapentin 300 mg Capsule 300 mg PO BID RF: 0 losartan-hydrochlorothiazide 50-12.5 mg Tablet 50 mg PO DAILY RF: 0 omega-3 fatty acids 500 mg Capsule 500 mg PO DAILY RF: 0 cholecalciferol (vitamin D3) 2,000 unit Tablet 2,000 mg PO DAILY RF: 0 Follow up/Referrals: Margaret Lowe MD [Physician] - (Follow up at your previously scheduled post-op appointment in 2 weeks.) Discharge Health Status Brief summary of current health status: Patient had a laminectomy by Dr. Lowe at [facility] on 03/20/2018. A history of hypertension. Multidrug resistant organism: No MDRO MDRO Verified by culture: Yes Precautions: [place] Provider Discharge Instructions Diet: Diet as Tolerated and Regular Liquid consistency: Normal/Thin Food texture: Regular Activity: Activity as tolerated. Ambulate with a walker/cane. Cold/Heat Therapy: Apply ice to incision site 20 minutes at a time at least hourly while awake. Skin/Wound/Dressing Care Report to your healthcare provider any signs of infection, such as:: chills, fever, night sweats, increased pain and unusual drainage Dressing: Keep dressing clean dry and intact. May shower but no baths. Special Rehabilitation Services Reason for rehabilitation: Post-operative therapy Rehab type: Physical therapy and Occupational therapy Restrictions to mobility: No lifting bending or twisting. Visit Report/Discharge Packet Instructions: DI for Laminectomy Stand Alone Forms: Surgery Discharge Discharge Data Attending Provider: Margaret Lowe Admit Date/Time: 03/22/18 15:22 Quality VTE Deep Vein Thrombosis/Pulmonary Embolism Present on Admission: No
--- NOTE | 2018-03-25 11:27 | PT.IPTN ---
Current Diagnoses Essential (primary) hypertension (03/22/18) Other spondylosis with radiculopathy, lumbar region (03/22/18) Spinal stenosis, lumbar region with neurogenic claudication (03/22/18) Other specified postprocedural states (03/22/18) Surgery Performed Operation Date: 03/20/18 09:15 Actual Procedures p Laminectomy L2-3,L3-4 - Margaret Lowe MD Physical Therapy Treatment Note M2 PT-IP Current Condition Start: 03/21/18 08:33 Freq: NEEDED Status: Active Protocol: Document 03/21/18 11:57 RS (Rec: 03/21/18 12:31 RS [id number]) Physical Therapy Current Condition Current Condition Evaluation Date 03/21/18 Treatment Diagnosis L2-L3, L3-4 laminectomies, impaired mobility, focal LLE weakness Onset Date 03/20/18 Precautions Lumbar Precautions Log Roll No Twisting Limit Bending Lifting Restriction of 10 lbs Gait Belt above Incisional Area M3 PT-IP Subjective Start: 03/21/18 08:33 Freq: NEEDED Status: Active Protocol: Document 03/25/18 11:13 GGD (Rec: 03/25/18 11:27 GGD [id number]) Subjective Physical Therapy Visit Type Type Treatment Note Visit Start Time 10:25 Visit Stop Time 11:05 Total Visit Minutes 40 Number of MANAGER BUSINESS MANAGEMENT Visits 7 Physical Therapy Visit Comments Patient Comments Pt feeling better. Therapy Pain Assessment Pain When Pain Assessed At Rest Pain Present Pain Present Denied Pain M4 PT-IP Mobility and Gait Start: 03/21/18 08:33 Freq: NEEDED Status: Active Protocol: Document 03/25/18 11:13 GGD (Rec: 03/25/18 11:27 GGD [id number]) PT-Bed Mobility Assessment Rolling Type of Rolling Log Rolling Roll to Left Level of Assist Standby Assistance Supine to Sit Supine to Sit Contact Guard Assistance Scooting Scooting to Edge of Bed Standby Assistance PT-Transfer Assessment Sit to and From Stand Sit to and from Stand Contact Guard Assistance 1 Person Assistance Use of Upper Extremities Equipment Transfer Assistive Device Gait Belt Front Wheeled Walker Transfers Transfer Destination Chair Gait Assessment Gait Gait Assistance Required: Contact Guard Assist 1 Person Assist Distance (Feet) 270 Able to Maintain Weight Bearing Status Yes During Gait Assistive Devices Assistive Device Gait Belt Front Wheeled Walker Orthotic/Prosthetic Devices or Brace: No Gait Deviations General Gait Pattern Antalgic Decreased Stride Length Decreased Feet Clearance Flexed Trunk Factors Limiting Gait Function Factors Limiting Gait Function Decreased Activity Tolerance Decreased Strength Pain Poor Balance M5 PT-IP Objective Assessments Start: 03/21/18 08:33 Freq: NEEDED Status: Active Protocol: Document 03/21/18 11:57 RS (Rec: 03/21/18 12:31 RS [id number]) Orientation Orientation/Cognition Level of Alertness Alert Orientation Name Age Birthday Month Date Year Day of Week Place Situation Language Function Ability No Deficits Noted Safety Awareness Understands Safety Issues Memory Description No Deficits Noted Gross Range of Motion Upper Extremity ROM Assessment Within Functional Limits Lower Extremity ROM Assessment Within Functional Limits Strength Upper Extremity Strength Assessment Within Functional Limits Lower Extremity Strength Assessment Bilaterally Impaired Hip R 4/5, L 2+/5 Knee R 4/5, L 3/5 Ankle R 4/5, L 3/5 M6 PT-IP Treatment Start: 03/21/18 08:33 Freq: NEEDED Status: Active Protocol: Document 03/25/18 11:13 GGD (Rec: 03/25/18 11:27 GGD [id number]) Physical Therapy Treatment Exercises Exercises Ankle Pumps Seated Knee Flexion/Extension Education Education Provided Precautions Equipment Issued Equipment Type and Company sit to stand from chair, knee bends in standing. M7 PT-IP Assessment and Plan Start: 03/21/18 08:33 Freq: NEEDED Status: Active Protocol: Document 03/25/18 11:13 GGD (Rec: 03/25/18 11:27 GGD [id number]) PT Summary Assessment and Plan Summary Assessment Summary Pt improving with mobility. She was able to progress bed mobility without use of rails. Frequency of Treatment Frequency Of Treatment Twice a Day Treatment Plan Physical Therapy Treatment Plan Bed Mobility Training Transfer Training Gait Training Therapeutic Exercise Balance Retraining Post Op Education Discharge Planning Hot or Cold Pack Neuromuscular Re-ed Coordination Retraining Manual Therapy Recommendations To Nursing Amount of Assist Needed 1 Person Assist Discharge Recommendations PT Discharge Recommendations SNF Rehab
--- NOTE | 2018-03-25 13:01 | CM.DPC ---
Discharge orders received for patient. Met with patient and her daughter to confirm plan to d/c to [facility]. They are in agreement with this plan. Call to [facility], they will pick patient up at 2:30. Med list, prescriptions, PASSR faxed to Lanette at [facility]. Plan: D/C to [facility].
--- NOTE | 2018-03-25 14:32 | PC.NURSE ---
Transfer: Pt feels ready to transfer to snf. Worked w/PT and OT and received their final instructions. Seen by PA and received instructions from her. Reviewed wound care and act limits. Pt has not been taking anything for pain. Report called to Mely admitting nurse at [facility]. Reviewed hospital course, wound and rash, adl's, and pain management (no pain). Questions answered. Packet taken. She may call until 1530 if she has further questions.
== END 2018-03-25 13:30 | DRG 519 ==
LOC: OR 03-22 07:28
PROVIDERS: Admitting Provider Orthopaedic Surgery Orthopaedic Surgery of the Spine; Visit Provider Orthopaedic Surgery Orthopaedic Surgery of the Spine
DX: M48.062 Spinal stenosis, lumbar region with neurogenic claudication (principal); Z68.41 Body mass index [BMI] 40.0-44.9, adult; M47.26 Other spondylosis with radiculopathy, lumbar region; I10 Essential (primary) hypertension; R21 Rash and other nonspecific skin eruption; E66.01 Morbid (severe) obesity due to excess calories
CPT/HCPCS: 36415; 72100; 76000; 85014; 85018; 97110; 97116; 97162; 97165; 97530; 97535; G0378; J0690; J1030; J1100; J2405; J2704; J3010